=== PATIENT | male | born 1955 | race Hispanic/Latino ===

== ENCOUNTER 2017-04-07 20:04 | Emergency (ER) | payer MEDICAID ==
[2017-04-07 20:04] VITALS: BMI 36.2
[2017-04-07 20:23] VITALS: BP 139/86; PULSE 108; RESP 18; TEMP 99.4; O2SAT 99
[2017-04-07 21:07] LABS: BASO % 0.3 % (0.0-2.0); EOS # 0.4 K/uL (0.0-0.7); EOS % 3.4 % (0.0-4.0); HEMOGLOBIN 13.3 g/dL (12.0-18.0); LYMPH # 2.5 K/uL (1.0-4.3); LYMPH % 20.7 % (20.0-40.0); MEAN CELL VOLUME 89.7 fl (80.0-94.0); MEAN CORPUSCULAR HGB CONC 33.5 g/dL (33.0-37.0); MEAN PLATELET VOLUME 7.6 fl (7.2-11.7); MONO # 0.8 K/uL (0.0-0.8); MONO % 6.7 % (0.0-10.0); NEUT # 8.2 K/uL (1.8-7.0); NEUT % 68.9 % (50.0-75.0); NRBC % 0.2 % (0.0-0.0); RBC 4.43 Mil/uL (4.40-5.90); RED CELL DISTRIBUTION WIDTH 14.3 % (11.5-14.5); WHITE BLOOD COUNT 11.9 K/uL (4.8-10.8)
[2017-04-07 21:14] LABS: BLOOD UREA NITROGEN 12 mg/dl (9-20); CALCIUM 9.4 mg/dL (8.4-10.2); GFR AFRICAN-AMERICAN > 60; GFR NON-AFRICAN AMERICAN > 60
--- NOTE | 2017-04-07 21:31 | ED PDOC ---
HPI: Male Pain Time Seen by Provider: 04/07/17 20:28 Chief Complaint (Nursing): Male Genitourinary Chief Complaint (Provider): Burning Urination/Diarrhea/Rash History Per: Patient History/Exam Limitations: no limitations Onset/Duration Of Symptoms: Other (months ) Current Symptoms Are (Timing): Still Present Quality Of Discomfort: Burning, "Pain" Associated Symptoms: Diarrhea. denies: Fever, Chest Pain Additional Complaint(s): Camron Uriostegui is a 61 y/o male presenting to the ER on 04/07/2017 with a chief complaint of a burning sensation while urinating that has been persistent for months. Patient states his urinary discomfort is not associated with fever, abdominal pain, or back pain. Patient also presents with diarrhea that has been ongoing for a couple of weeks, which has been describes as somewhat watery with a little mucus. Further, the patient also complains of a rash from what he believes may be due to possible exposure to Poison Claudette after he was in contact with several plants. Contrary to the stated complaint from triage, patient denies any rectal bleeding or hematochezia. Patient stated upon arrival he was having normal bowel movements, but noted a small streak of blood while he was wiping. Of note, patient has had a ureteral stent placed by Dr. Le last year. Patient has had the stent placed since the procedure but has been unable to get it taken out. Past Medical History Reviewed: Historical Data, Nursing Documentation, Vital Signs Vital Signs: Last Vital Signs Temp 99.4 F 04/07/17 20:21 Pulse 108 H 04/07/17 20:21 Resp 18 04/07/17 20:21 BP 139/86 04/07/17 20:21 Pulse Ox 99 04/07/17 20:21 - Medical History PMH: HTN, Kidney Stones, Peripheral Edema, Chronic Kidney Disease - Surgical History Surgical History: No Surg Hx - Family History Family History: States: Unknown Family Hx - Social History Current smoker - smoking cessation education provided: No Alcohol: None Drugs: Denies - Home Medications Home Medications: Ambulatory Orders Medication Instructions Recorded Blood Pressure Med. 1 tab PO DAILY 02/29/16 Muscle Relaxant 1 tab PO BID 02/29/16 Water Pill 1 tab PO DAILY 02/29/16 Ciprofloxacin HCl [Cipro] 500 mg PO BID #20 tablet 04/07/17 Hydrocortisone 1% Cream [Cortizone 1 appl TP DAILY #1 tube 04/07/17 1% Cream] - Allergies Allergies/Adverse Reactions: Allergies Allergy/AdvReac Type Severity Reaction Status Date / Time No Known Allergies Allergy Verified 02/29/16 06:59 Review of Systems ROS Statement: Except As Marked, All Systems Reviewed And Found Negative Constitutional: Negative for: Fever Cardiovascular: Negative for: Chest Pain Gastrointestinal: Positive for: Diarrhea. Negative for: Abdominal Pain Genitourinary Male: Positive for: Dysuria Musculoskeletal: Negative for: Back Pain Skin: Positive for: Rash Neurological: Negative for: Headache Physical Exam - Reviewed Nursing Documentation Reviewed: Yes Vital Signs Reviewed: Yes - Physical Exam Appears: Positive for: Non-toxic, No Acute Distress Head Exam: Positive for: ATRAUMATIC, NORMOCEPHALIC Skin: Positive for: Rash ((+) urticarial rash on both arms that is erythematous , not raised , and non-blanching) Eye Exam: Positive for: Normal appearance, EOMI, PERRL ENT: Positive for: Normal ENT Inspection Neck: Positive for: Normal, Painless ROM, Supple Cardiovascular/Chest: Positive for: Regular Rate, Rhythm. Negative for: Murmur Respiratory: Positive for: Normal Breath Sounds. Negative for: Respiratory Distress Gastrointestinal/Abdominal: Positive for: Normal Exam, Soft. Negative for: Tenderness Extremity: Positive for: Normal ROM. Negative for: Deformity, Swelling Neurologic/Psych: Positive for: Alert, Oriented. Negative for: Motor/Sensory Deficits - Laboratory Results Result Diagrams: 04/07/17 20:30 04/07/17 20:30 - ECG O2 Sat by Pulse Oximetry: 99 Medical Decision Making Medical Decision Makin:28 Initial Impression- Dysuria (differential diagnosis includes UTI and urethritis) ; Diarrhea (differential diagnosis includes resolving enteritis); Rash ( differential diagnosis includes contact dermatitis from poison claudette) Initial Plan- * Urine Dip * Benadryl 25 mg PO * Urine Cx * KUB Abdomen * * KUB left ureteral stent. no acute findings * Documented by Ann Olivarez, acting as a scribe for Parvez Caldwell MD. All medical record entries made by the Scribe were at my direction and personally dictated by me. I have reviewed the chart and agree that the record accurately reflects my personal performance of the history, physical exam, medical decision making, and the department course for this patient. I have also personally directed, reviewed, and agree with the discharge instructions and disposition. Disposition - Clinical Impression Clinical Impression: Urinary tract infection, Poison claudette dermatitis - Patient ED Disposition Is Patient to be Admitted: No Doctor Will See Patient In The: Office Counseled Patient/Family Regarding: Studies Performed, Diagnosis, Need For Followup - Disposition Referrals: Dennis Le Jr., MD [Staff Provider] - Disposition: Routine/Home Disposition Time: 22:24 Condition: GOOD Additional Instructions: Return for worsening. Follow up with your PCP in 2-3 days. Take your medications as instructed. Prescriptions: Ciprofloxacin HCl [Cipro] 500 mg PO BID #20 tablet Hydrocortisone 1% Cream [Cortizone 1% Cream] 1 appl TP DAILY #1 tube Instructions: Urinary Tract Infection in Men (ED), Poison Claudette (ED)
--- NOTE | 2017-04-08 07:55 | RAD ---
HISTORY: dysuria hx of ureteral stent COMPARISON: No prior. FINDINGS: BOWEL: Normal. No obstruction. No free air. 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 OTHER FINDINGS: Position of left double J stent catheter(s): Satisfactory. Proximal left ureteral calculus 12 x 22 mm. IMPRESSION: Double-J stent catheter on the left in satisfactory position. Adjacent proximal right ureteral calculus 12 x 22 mm. No preliminary report provided by emergency department personnel.
== END 2017-04-07 22:53 | disposition home or self-care (01) ==
LOC: H.ER 20:04
DX: L23.7 Allergic contact dermatitis due to plants, except food (principal); N39.0 Urinary tract infection, site not specified; I12.9 Hypertensive chronic kidney disease with stage 1 through stage 4 chronic kidney disease, or unspecified chronic kidney disease

== ENCOUNTER 2018-04-27 16:00 | Emergency (ER) | payer MEDICAID ==
[2018-04-27 16:00] VITALS: BMI 36.2
[2018-04-27] MEDS ORDERED: Naproxen 500 MG TAB PO ONE (17:14)
[2018-04-27] MEDS: Naproxen 500 MG TAB PO STA (17:19)
--- NOTE | 2018-04-27 17:31 | ED PDOC ---
Lower Extremity Pain/Injury Time Seen by Provider: 04/27/18 16:50 Chief Complaint (Nursing): Lower Extremity Problem/Injury Chief Complaint (Provider): Right Ankle Pain / Swelling History Per: Patient History/Exam Limitations: other (patient is a poor historian) Onset/Duration Of Symptoms: Days (x1 month) Current Symptoms Are (Timing): Still Present Additional Complaint(s): 62 year old male presents to the ED for evaluation of right ankle pain and swelling for one month. At baseline, patient uses a walker due to a previous hip surgery as a child and frequent problems with both legs. He reports that last month he was walking more than normal and noticed swelling and pain to bilateral legs, but after taking it easy, the left leg symptoms resolved. The pain and swelling persisted in his right ankle, however, and now has pain on ambulating with walker. Patient thinks it may be a fungal infection to his foot since he notes having a history of them. Otherwise, he denies swelling and pain to the right calf, chest pain, shortness of breath, fever, rash, and trauma / falls / accident at the time of onset. He reports he has not been evaluated since the start of symptoms, but was worked up many years ago for leg swelling, however does not remember his diagnosis. Of note, patient is a poor historian. PMD: Rajiv Mccain Past Medical History Reviewed: Historical Data, Nursing Documentation, Vital Signs Vital Signs: Last Vital Signs Temp 98.2 F 04/27/18 16:10 Pulse 87 04/27/18 16:10 Resp 16 04/27/18 16:10 BP 178/86 H 04/27/18 16:10 Pulse Ox 97 04/27/18 16:10 - Medical History PMH: HTN, Kidney Stones, Peripheral Edema, Chronic Kidney Disease - Surgical History Other surgeries: colon surgery; right hip surgery - Family History Family History: States: Unknown Family Hx - Social History Current smoker - smoking cessation education provided: No Alcohol: Social - Home Medications Home Medications: Ambulatory Orders Medication Instructions Recorded Blood Pressure Med. 1 tab PO DAILY 02/29/16 Muscle Relaxant 1 tab PO BID 02/29/16 Water Pill 1 tab PO DAILY 02/29/16 Ciprofloxacin HCl [Cipro] 500 mg PO BID #20 tablet 04/07/17 Hydrocortisone 1% Cream [Cortizone 1 appl TP DAILY #1 tube 04/07/17 1% Cream] Acetaminophen [Tylenol Extra 500 mg PO Q6 PRN #100 tablet 04/27/18 Strength] - Allergies Allergies/Adverse Reactions: Allergies Allergy/AdvReac Type Severity Reaction Status Date / Time No Known Allergies Allergy Verified 02/29/16 06:59 Wells Criteria for PE - Wells Criteria for Pulmonary Embolism Clinical Signs and Symptoms of DVT: No P.E is #1 Diagnosis, or Equally Likely: No Heart Rate >100: No Immobilization at least 3 days;Surgery previous 4 weeks: No Previous, objectively diagnosed PE or DVT: No Hemoptysis: No Malignancy w/treatment within 6 months, or palliative: No Total Score: 0 Review of Systems ROS Statement: Except As Marked, All Systems Reviewed And Found Negative Constitutional: Negative for: Fever Cardiovascular: Negative for: Chest Pain Respiratory: Negative for: Shortness of Breath Musculoskeletal: Positive for: Foot Pain (right ankle pain and swelling). Negative for: Other (swelling or pain to right calf) Skin: Negative for: Rash Physical Exam - Reviewed Nursing Documentation Reviewed: Yes Vital Signs Reviewed: Yes - Physical Exam Appears: Positive for: Well, Non-toxic, No Acute Distress Head Exam: Positive for: ATRAUMATIC Skin: Positive for: Normal Color, Warm. Negative for: Rash, Cyanosis Cardiovascular/Chest: Positive for: Regular Rate, Rhythm, Chest Non Tender. Negative for: JVD, Murmur Respiratory: Positive for: Normal Breath Sounds. Negative for: Accessory Muscle Use, Crackles, Rales, Rhonchi, Wheezing Pulses-Dorsalis Pedis (L): 2+ Pulses-Dorsalis Pedis (R): 2+ Pulses-Post. Tibialis (L): 2+ Pulses-Post. Tibialis (R): 2+ Gastrointestinal/Abdominal: Positive for: Normal Exam Extremity: Positive for: Normal ROM, Swelling, Other (FROM and strenght equal in both ankles. Right ankle mildly swollen with overgrown toenails but no signs on infection/cellulitis. No pitting. NO point tenderness to ankle.). Negative for: Calf Tenderness - Laboratory Results Result Diagrams: 04/27/18 17:40 04/27/18 17:40 - ECG O2 Sat by Pulse Oximetry: 97 (RA) Pulse Ox Interpretation: Normal Medical Decision Making Medical Decision Making: Time: 1705 Initial Impression: low suspicion for DVT with Well's Criteria for DVT at 0, workup for injury to right ankle Initial Plan: --BNP --BMP --CBC with differential --Naproxen 500 mg PO --Right ankle XR Three view xray of right ankle reveals no fracture or other acute abnormality. Labs including BNP WNL. Pt's elevated BP discussed and he will follow up with his PMD for correction BP management. Pt given referral for podiatry clinic and will follow up in one week. Pt states he is comfortable walking with his walker and is comfortable being discharged home and with the follow up plan. Return precautions discussed with the patient. Rx for Tylenol for pain. Scribe Attestation: Documented by Marlyn Santiago, acting as a scribe for Terra Zamora MD. Provider Scribe Attestation: All medical record entries made by the Scribe were at my direction and personally dictated by me. I have reviewed the chart and agree that the record accurately reflects my personal performance of the history, physical exam, medical decision making, and the department course for this patient. I have also personally directed, reviewed, and agree with the discharge instructions and disposition. Disposition - Clinical Impression Clinical Impression: Ankle pain - Disposition Referrals: Podiatry Clinic [Outside] Disposition: Routine/Home Disposition Time: 18:50 Condition: IMPROVED Additional Instructions: Follow up in podiatry clinic within 5 to 7 days. Prescriptions: Acetaminophen [Tylenol Extra Strength] 500 mg PO Q6 PRN #100 tablet PRN Reason: Pain, Moderate (4-7) Forms: [employer] (Syriac)
[2018-04-27 17:51] LABS: BASO # 0.1 K/uL (0.0-0.2); BASO % 0.8 % (0.0-2.0); EOS # 0.3 K/uL (0.0-0.7); EOS % 2.7 % (0.0-4.0); HEMOGLOBIN 13.7 g/dL (12.0-18.0); LYMPH # 3.4 K/uL (1.0-4.3); LYMPH % 33.5 % (20.0-40.0); MEAN CELL VOLUME 90.4 fl (80.0-94.0); MEAN CORPUSCULAR HEMOGLOBIN 30.7 pg (27.0-31.0); MEAN PLATELET VOLUME 8.3 fl (7.2-11.7); MONO # 0.8 K/uL (0.0-0.8); MONO % 8.2 % (0.0-10.0); NEUT # 5.5 K/uL (1.8-7.0); NEUT % 54.8 % (50.0-75.0); NRBC % 0.4 % (0.0-0.0); RBC 4.46 Mil/uL (4.40-5.90); RED CELL DISTRIBUTION WIDTH 13.9 % (11.5-14.5); WHITE BLOOD COUNT 10.1 K/uL (4.8-10.8)
[2018-04-27 17:57] LABS: BLOOD UREA NITROGEN 16 mg/dl (9-20); CALCIUM 9.3 mg/dL (8.4-10.2); GFR AFRICAN-AMERICAN > 60; GFR NON-AFRICAN AMERICAN > 60
[2018-04-27 18:04] LABS: B-TYPE NATRIURETIC PEPTIDE 453 pg/ml (0-900)
--- NOTE | 2018-04-27 18:06 | RAD ---
Date of service: 04/27/2018 PROCEDURE: Right Ankle Radiographs. HISTORY: right ankle swelling and pain for one month COMPARISON: None FINDINGS: BONES: Normal. No fracture. JOINTS: Normal. No osteoarthritis. Ankle mortise maintained. Talar dome intact SOFT TISSUES: Generalize locally extremity edema/soft tissue swelling. OTHER FINDINGS: None. IMPRESSION: Soft tissue swelling/generalized edema without acute articular or osseous abnormality.
[2018-04-27 19:13] VITALS: BP 141/80; PULSE 81; RESP 18; TEMP 98.4; O2SAT 99
== END 2018-04-27 19:16 | disposition home or self-care (01) ==
LOC: H.ER 16:00
DX: M25.571 Pain in right ankle and joints of right foot (principal); I12.9 Hypertensive chronic kidney disease with stage 1 through stage 4 chronic kidney disease, or unspecified chronic kidney disease

== ENCOUNTER 2018-06-21 14:36 | Emergency (ER) | payer MEDICAID ==
[2018-06-21 14:36] VITALS: BMI 36.2
[2018-06-21 15:20] VITALS: TEMP 97.9; O2SAT 99
--- NOTE | 2018-06-21 16:27 | ED PDOC ---
Lower Extremity Pain/Injury Chief Complaint (Provider): Wound, right lower leg History Per: Patient History/Exam Limitations: no limitations Onset/Duration Of Symptoms: Days Current Symptoms Are (Timing): Still Present Additional Complaint(s): 62 yo male presents with burning on urination x 1 week. Pt denies N/V/ abdominal pain, back pain. Pt als reports wound of the right posterior leg x 1 month. Pt denies calf pain. Pt states he was on antibiotics for wound but unable to follow-up. <Ericka Humphrey - Last Filed: 06/21/18 16:24> <Terra Zamora - Last Filed: 06/26/18 13:49> Time Seen by Provider: 06/21/18 15:27 Chief Complaint (Nursing): Lower Extremity Problem/Injury Past Medical History Reviewed: Historical Data, Nursing Documentation, Vital Signs Vital Signs: Last Vital Signs Temp 97.9 F 06/21/18 15:19 Pulse 90 06/21/18 15:19 Resp 20 06/21/18 15:19 BP 137/75 06/21/18 15:19 Pulse Ox 99 06/21/18 15:19 - Medical History PMH: HTN, Kidney Stones, Peripheral Edema, Chronic Kidney Disease - Surgical History Surgical History: No Surg Hx - Family History Family History: States: Unknown Family Hx - Living Arrangements Living Arrangements: With Family - Social History Current smoker - smoking cessation education provided: No <Ericka Humphrey - Last Filed: 06/21/18 16:24> Vital Signs: Last Vital Signs Temp 97.9 F 06/21/18 17:07 Pulse 86 06/21/18 17:07 Resp 18 06/21/18 17:07 BP 135/70 06/21/18 17:07 Pulse Ox 99 06/21/18 17:07 <Terra Zamora - Last Filed: 06/26/18 13:49> - Home Medications Home Medications: Ambulatory Orders Medication Instructions Recorded Blood Pressure Med. 1 tab PO DAILY 02/29/16 Muscle Relaxant 1 tab PO BID 02/29/16 Water Pill 1 tab PO DAILY 02/29/16 Ciprofloxacin HCl [Cipro] 500 mg PO BID #20 tablet 04/07/17 RX: Hydrocortisone 1% Cream 1 appl TP DAILY #1 tube 04/07/17 [Cortizone 1% Cream] Acetaminophen [Tylenol Extra 500 mg PO Q6 PRN #100 tablet 04/27/18 Strength] Sulfamethoxazole/Trimethoprim 1 each PO BID #20 tablet 06/21/18 [Bactrim 400-80 mg Tablet] - Allergies Allergies/Adverse Reactions: Allergies Allergy/AdvReac Type Severity Reaction Status Date / Time No Known Allergies Allergy Verified 06/21/18 15:21 Review of Systems ROS Statement: Except As Marked, All Systems Reviewed And Found Negative Constitutional: Negative for: Fever, Chills ENT: Negative for: Ear Pain Cardiovascular: Negative for: Chest Pain, Palpitations Respiratory: Negative for: Cough, Shortness of Breath Gastrointestinal: Negative for: Nausea, Vomiting, Abdominal Pain Genitourinary Male: Positive for: Dysuria Skin: Positive for: Other (Wound, posterior right lower leg ). Negative for: Rash Neurological: Negative for: Weakness, Numbness, Seizures, Altered Mental Status, Headache <Ericka Humphrey - Last Filed: 06/21/18 16:24> Physical Exam - Reviewed Nursing Documentation Reviewed: Yes Vital Signs Reviewed: Yes - Physical Exam Appears: Positive for: Well, Non-toxic, No Acute Distress Head Exam: Positive for: ATRAUMATIC, NORMAL INSPECTION, NORMOCEPHALIC Skin: Positive for: Normal Color, Warm, DRY Eye Exam: Positive for: Normal appearance ENT: Positive for: Normal ENT Inspection Neck: Positive for: Normal, Painless ROM Cardiovascular/Chest: Positive for: Regular Rate, Rhythm Respiratory: Positive for: Normal Breath Sounds. Negative for: Accessory Muscle Use, Respiratory Distress Back: Positive for: Normal Inspection. Negative for: L CVA Tenderness, R CVA Tenderness Extremity: Positive for: Normal ROM, Other ((-) homens sign). Negative for: Calf Tenderness, Deformity Neurologic/Psych: Positive for: Alert, Oriented <Ericka Humphrey - Last Filed: 06/21/18 16:24> - ECG O2 Sat by Pulse Oximetry: 99 <Ericka Humphrey - Last Filed: 06/21/18 16:24> Medical Decision Making Medical Decision Making: Urine (+) leuks Urine culture and GC/chlamydia Discussed f/u with wound clinic <Ericka Humphrey - Last Filed: 06/21/18 16:24> Disposition - Patient ED Disposition Is Patient to be Admitted: No Counseled Patient/Family Regarding: Diagnosis, Need For Followup - Disposition Disposition: Routine/Home Disposition Time: 16:29 <Ericka Humphrey - Last Filed: 06/21/18 16:24> <Terra Zamora - Last Filed: 06/26/18 13:49> - Clinical Impression Clinical Impression: Urinary tract infection, Wound of skin - Disposition Referrals: [facility] [Outside] Podiatry Clinic [Outside] [facility] [Outside] Condition: STABLE Prescriptions: Sulfamethoxazole/Trimethoprim [Bactrim 400-80 mg Tablet] 1 each PO BID #20 tablet Instructions: Urinary Tract Infection, Adult (DC) Forms: [employer] (Uzbek) Addendum Addendum: 06/26/18 13:49 reviewed chart and agree with PA assessment and plan. <Terra Zamora - Last Filed: 06/26/18 13:49>
[2018-06-21 17:08] VITALS: BP 135/70; PULSE 86; RESP 18
== END 2018-06-21 17:09 | disposition home or self-care (01) ==
LOC: H.ER 14:36
DX: N39.0 Urinary tract infection, site not specified (principal); L97.909 Non-pressure chronic ulcer of unspecified part of unspecified lower leg with unspecified severity; I12.9 Hypertensive chronic kidney disease with stage 1 through stage 4 chronic kidney disease, or unspecified chronic kidney disease

== ENCOUNTER 2018-07-14 16:33 | Inpatient (IN) | payer MEDICAID ==
--- NOTE | 2018-07-14 18:31 | ED PDOC ---
Lower Extremity Pain/Injury Time Seen by Provider: 07/14/18 18:27 Chief Complaint (Nursing): Lower Extremity Problem/Injury Chief Complaint (Provider): blisters to right ankle History Per: Patient Additional Complaint(s): 62 y/o non-domiciled male presents with painful blister to right ankle. Patient has had infections to right ankle on and off for several years. He noticed purulent discharge from same area a few days ago. He denies any fever or chills. Patient was seen on 06/21/18 in ED for UTI symptoms and was prescribed bactrim but he admits to being non-compliant with these meds. PMD: none Past Medical History Reviewed: Historical Data, Nursing Documentation, Vital Signs Vital Signs: Last Vital Signs Temp 98.6 F 07/14/18 16:45 Pulse 87 07/14/18 16:45 Resp 16 07/14/18 16:45 BP 146/83 07/14/18 16:45 Pulse Ox 96 07/14/18 16:45 - Medical History PMH: HTN, Kidney Stones, Peripheral Edema, Chronic Kidney Disease - Family History Family History: States: No Known Family Hx - Living Arrangements Living Arrangements: Other (lives in long-term) - Social History Current smoker - smoking cessation education provided: Yes Alcohol: None Drugs: Denies - Home Medications Home Medications: Ambulatory Orders Medication Instructions Recorded Blood Pressure Med. 1 tab PO DAILY 02/29/16 Muscle Relaxant 1 tab PO BID 02/29/16 Water Pill 1 tab PO DAILY 02/29/16 Ciprofloxacin HCl [Cipro] 500 mg PO BID #20 tablet 04/07/17 Hydrocortisone 1% Cream [Cortizone 1 appl TP DAILY #1 tube 04/07/17 1% Cream] Acetaminophen [Tylenol Extra 500 mg PO Q6 PRN #100 tablet 04/27/18 Strength] Sulfamethoxazole/Trimethoprim 1 each PO BID #20 tablet 06/21/18 [Bactrim 400-80 mg Tablet] - Allergies Allergies/Adverse Reactions: Allergies Allergy/AdvReac Type Severity Reaction Status Date / Time No Known Allergies Allergy Verified 07/14/18 16:47 Wells Criteria for PE - Wells Criteria for Pulmonary Embolism Clinical Signs and Symptoms of DVT: No P.E is #1 Diagnosis, or Equally Likely: No Heart Rate >100: No Immobilization at least 3 days;Surgery previous 4 weeks: No Previous, objectively diagnosed PE or DVT: No Hemoptysis: No Malignancy w/treatment within 6 months, or palliative: No Total Score: 0 Review of Systems ROS Statement: Except As Marked, All Systems Reviewed And Found Negative Constitutional: Negative for: Fever Musculoskeletal: Positive for: Other (blisters to right ankle) Physical Exam - Reviewed Nursing Documentation Reviewed: Yes Vital Signs Reviewed: Yes - Physical Exam Appears: Positive for: Non-toxic, No Acute Distress. Negative for: Well (unkempt) Skin: Positive for: Normal Color. Negative for: Rash Eye Exam: Positive for: Normal appearance Extremity: Positive for: Pedal Edema (3 + bilaterally), Other (swelling and erythema to right posterior ankle with thick, foul smelling purulent discharge, normal distal sensation) Neurologic/Psych: Positive for: Alert, Oriented - ECG O2 Sat by Pulse Oximetry: 96 Pulse Ox Interpretation: Normal Medical Decision Making Medical Decision Makin62 y/o male with right ankle pain Plan: Blood cultures CBC CMP Wound culture IV vanco and zosyn IVF Podiatry consult Disposition - Clinical Impression Clinical Impression: Open wound of ankle - Patient ED Disposition Is Patient to be Admitted: Transfer of Care - Disposition Disposition: Transfer of Care Disposition Time: 20:00 Condition: FAIR Forms: [employer] (Kosovan) Patient Signed Over To: Mariana Perkins Handoff Comments: Signed out to FRANCIS Perkins pending diagnostic testing results, podiatry eval and final disposition
[2018-07-14] MEDS ORDERED: Sodium Chloride 0.9% 1,000 ML IV STA (18:34)
[2018-07-14] MEDS ORDERED: Piperacillin/Tazobact 3.375 gm Inj IVPB STA (18:34)
[2018-07-14] MEDS ORDERED: Povidone Iodine Topical 10% Sol ONE (20:02)
--- NOTE | 2018-07-14 21:00 | ED PDOC ---
- Laboratory Results Result Diagrams: 07/14/18 20:55 07/14/18 20:55 - ECG ECG: Positive for: Viewed By Me (reviewed by ED attending) ECG Rhythm: Positive for: Sinus Rhythm O2 Sat by Pulse Oximetry: 96 - Radiology X-Ray: Viewed By Me X-Ray Interpretation: Cardiomegaly - Progress ED Course And Treament: Case endorsed to typewriter repairer from Yvan MELLO pending labs, podiatry eval Patient evaluated by podiatry resident Dr. Ramon; wound dressed. Recommends PO abx and f/up at wound care center [facility] u/s USArad impression: The right popliteal vein in non-compressivle with no color flow is seen throughout consistent with deep vein thrombosis Lovenox dose ordered Case discussed with Dr. Dennis for admission Disposition - Clinical Impression Clinical Impression: Open wound of ankle, Cellulitis, DVT (deep venous thrombosis) - POA Present On Arrival: Deep Vein Thrombosis / PE - Disposition Disposition: Admitted as In-Patient Disposition Time: 23:28 Condition: FAIR
[2018-07-14 21:05] LABS: BASO # 0.1 K/uL (0.0-0.2); EOS # 0.3 K/uL (0.0-0.7); EOS % 2.4 % (0.0-4.0); HEMOGLOBIN 11.8 g/dL (12.0-18.0); LYMPH # 3.4 K/uL (1.0-4.3); LYMPH % 33.2 % (20.0-40.0); MEAN CELL VOLUME 89.4 fl (80.0-94.0); MEAN CORPUSCULAR HEMOGLOBIN 29.9 pg (27.0-31.0); MEAN CORPUSCULAR HGB CONC 33.5 g/dL (33.0-37.0); MEAN PLATELET VOLUME 7.2 fl (7.2-11.7); MONO # 0.7 K/uL (0.0-0.8); MONO % 7.2 % (0.0-10.0); NEUT # 5.8 K/uL (1.8-7.0); NEUT % 56.2 % (50.0-75.0); NRBC % 0.1 % (0.0-0.0); RBC 3.95 Mil/uL (4.40-5.90); RED CELL DISTRIBUTION WIDTH 12.8 % (11.5-14.5); WHITE BLOOD COUNT 10.4 K/uL (4.8-10.8)
[2018-07-14 21:15] LABS: ALBUMIN 3.4 g/dL (3.5-5.0); ALT/SGPT 46 U/L (21-72); AST/SGOT 55 U/L (17-59); BLOOD UREA NITROGEN 11 mg/dl (9-20); CALCIUM 8.8 mg/dL (8.4-10.2); GFR NON-AFRICAN AMERICAN > 60
[2018-07-14] MEDS ORDERED: Piperacillin/Tazobact 3.375 gm Inj IVPB ONE (21:16)
[2018-07-14] MEDS ORDERED: Vancomycin 1 g Inj ONE (21:17)
--- NOTE | 2018-07-14 21:52 | CP.PCM.CON ---
History of Present Illness - History of Present Illness History of Present Illness: Podiatry Consult Note for Dr. cMhugh: 62 yo male patient presents with painful calf and superficial ulceration to right leg. 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 He notes that he occasionally gets R leg ulcers that drain clear fluid. However this time, his leg is a lot more red, swollen, and painful than normal. Patient states that he was treated in the ED a couple of weeks ago for a UTI. Unable to obtain full history, patient is a poor historian. Denies any other pedal complaints. Patient denies N/V/F/SOB. Past Patient History - Past Medical History & Family History Past Medical History?: Yes - Past Social History Alcohol: None Drugs: Denies - CARDIAC Hx Hypertension: Yes Hx Peripheral Edema: Yes - PULMONARY Hx Respiratory Disorders: No - NEUROLOGICAL Hx Neurological Disorder: Yes Other/Comment: HX:UNSTEADY GAIT:"IN 2009 BEATEN WITH A PIPE HAD TO USE A WALKER FOR AWHILE BUT NOW I'M BETTER." - HEENT Hx HEENT Problems: Yes Hx Cataracts: Yes ("SMALL AT THIS TIME") - RENAL Hx Chronic Kidney Disease: Yes Hx Kidney Stones: Yes - ENDOCRINE/METABOLIC Hx Endocrine Disorders: No - HEMATOLOGICAL/ONCOLOGICAL Hx Blood Disorders: Yes Hx Blood Transfusions: Yes Hx Blood Transfusion Reaction: No - INTEGUMENTARY Hx Dermatological Problems: No - MUSCULOSKELETAL/RHEUMATOLOGICAL Hx Musculoskeletal Disorders: Yes Hx Unsteady Gait: Yes Other/Comment: " AN I HAD SURGERY ON MY RIGHT HIP AND HAVE AN UNEVEN GAIT. I GET PAIN IN MY RIGHT HIP SO I TAKE A MUSCLE RELAXANT." - GASTROINTESTINAL Hx Gastrointestinal Disorders: Yes Hx Colostomy: Yes (AND REVERSAL DONE.) Hx Gastroesophageal Reflux: Yes Other/Comment: HX: 1987-"INFECTION IN MY COLON -I HAD SURGERY AND A COLOSTOMY FOR SEVERAL MONTHS BUT NO LONGER HAVE A COLOSTOMY.". HX: 2006-"COLON SURGERY DUE TO CONSTIPATION." - GENITOURINARY/GYNECOLOGICAL Hx Genitourinary Disorders: No - PSYCHIATRIC Hx Psychophysiologic Disorder: No Hx Substance Use: Yes - SURGICAL HISTORY Hx Surgeries: Yes Other/Comment: " AN INFANT I HAD SURGERY ON MY RIGHT HIP." - ANESTHESIA Hx Anesthesia: Yes Hx Anesthesia Reactions: No Hx Malignant Hyperthermia: No Meds Allergies/Adverse Reactions: Allergies Allergy/AdvReac Type Severity Reaction Status Date / Time No Known Allergies Allergy Verified 07/14/18 16:47 Physical Exam - Constitutional Appears: Non-toxic, No Acute Distress - Head Exam Head Exam: ATRAUMATIC, NORMOCEPHALIC - Extremities Exam Additional comments: RLE focused exam Vascular: DP/PT 1/4, CFT <3 seconds to digits, temperature gradient increased warmth to R calf, +2 pitting edema to RLE Ortho: Pain upon palpation of calf compression Neuro: Gross sensation intact, unable to assess protective sensation Derm: Superficial diffuse ulceration to posterior calf, + for mild weeping of sanginous drainage, no purulence, no tunneling, no tracking, no probe to bone. Erythema noted to proximal calf area. Results - Vital Signs Recent Vital Signs: Last Vital Signs Temp 98.6 F 07/14/18 16:45 Pulse 87 07/14/18 16:45 Resp 16 07/14/18 16:45 BP 146/83 07/14/18 16:45 Pulse Ox 96 07/14/18 21:00 - Labs Result Diagrams: 07/14/18 20:55 07/14/18 20:55 Labs: Laboratory Results - last 24 hr 07/14/18 07/14/18 20:55 20:55 WBC 10.4 RBC 3.95 L Hgb 11.8 L Hct 35.3 MCV 89.4 MCH 29.9 MCHC 33.5 RDW 12.8 Plt Count 342 MPV 7.2 Neut % (Auto) 56.2 Lymph % (Auto) 33.2 [place] % (Auto) 7.2 Eos % (Auto) 2.4 Baso % (Auto) 1.0 Neut # (Auto) 5.8 Lymph # (Auto) 3.4 [place] # (Auto) 0.7 Eos # (Auto) 0.3 Baso # (Auto) 0.1 Sodium 139 Potassium 3.3 L Chloride 107 Carbon Dioxide 25 Anion Gap 10 BUN 11 Creatinine 0.8 Est GFR ( Amer) > 60 Est GFR (Non-Af Amer) > 60 Random Glucose 102 Calcium 8.8 Total Bilirubin 0.4 AST 55 ALT 46 Alkaline Phosphatase 105 Total Protein 6.7 Albumin 3.4 L Globulin 3.3 Albumin/Globulin Ratio 1.0 Assessment & Plan - Assessment and Plan (Free Text) Assessment: 62 yo male patient presents with painful calf and superficial ulceration to right leg. Plan: Patient seen and evaluated with all questions and concerns addressed Afebrile, WBC 10.4 Wound cx RLE ulceration; pending Wound stable from podiatry standpoint Continue with abx R Duplex lower extremity vein; + for popliteal DVT - DVT treatment per medicine team, Lovonox dose ordered by ED team Local wound care: wound dressed with betadine wet to dry, DSD Pending D/C follow up in wound care center with Dr. Koehler, podiatry Will continue to follow while in house - Date & Time Date: 07/14/18 Time: 21:52
[2018-07-14 22:11] LABS: SQUAMOUS EPITHIAL 1 /hpf (0-5); URINE AMORPHOUS SEDIMENT RARE /ul (<OCC); URINE BILIRUBIN NEGATIVE (NEGATIVE); URINE BLOOD LARGE (NEGATIVE); URINE CLARITY CLOUDY (Clear); URINE COLOR YELLOW (YELLOW); URINE GLUCOSE (UA) NEG (Normal); URINE LEUKOCYTE ESTERASE MOD Leu/uL (Negative); URINE PROTEIN 30 mg/dL (NEGATIVE)
[2018-07-14] MEDS ORDERED: Enoxaparin 120 mg Syringe SC SCH (23:00)
[2018-07-15 00:10] LABS: INR 1.1; PROTHROMBIN TIME 12.3 Seconds (9.8-13.1)
[2018-07-15 00:11] LABS: PARTIAL THROMBOPLASTIN TIME 30.2 Seconds (25.6-37.1)
[2018-07-15] MEDS ORDERED: Potassium Chloride 20 mEq ER Tab PO ONE ×2 (00:39→00:48)
[2018-07-15] MEDS ORDERED: Piperacillin/Tazobact 3.375 gm Inj IVPB ONE ×2 (05:59→10:55)
[2018-07-15] MEDS: Piperacillin/Tazobact 3.375 GM in Sodium Chloride 0.9% 100 ML IVPB SCH ×2 (06:15→10:59)
--- NOTE | 2018-07-15 07:10 | CARD ---
APPROVED REPORT Date of service: 07/15/2018 EKG Measurement Heart [id number] <Conclusion> Sinus rhythm with occasional premature atrial complexes Otherwise normal ECG
[2018-07-15] MEDS ORDERED: Vancomycin 1 g Inj ONE (08:38)
--- NOTE | 2018-07-15 08:43 | RAD ---
Date of service: 07/14/2018 HISTORY: admit COMPARISON: No prior. FINDINGS: LUNGS: No active pulmonary disease. PLEURA: No significant pleural effusion identified, no pneumothorax apparent. CARDIOVASCULAR: No aortic atherosclerotic calcification present. Prominent appearing cardiac silhouette possibly on the basis of technical magnification. No pulmonary vascular congestion. OSSEOUS STRUCTURES: No significant abnormalities. VISUALIZED UPPER ABDOMEN: Normal. OTHER FINDINGS: None. IMPRESSION: No acute airspace disease bilaterally. No pulmonary vascular congestion.
[2018-07-15] MEDS: Enoxaparin 120 mg Syringe SC SCH ×2 (09:13→22:50)
--- NOTE | 2018-07-15 09:29 | US ---
Date of service: 07/14/2018 PROCEDURE: Right lower extremity venous duplex Doppler. HISTORY: calf swelling and tenderness, rule out DVT COMPARISON: None available. TECHNIQUE: Common femoral, superficial femoral, popliteal and posterior tibial veins were evaluated. Flow was assessed with color Doppler, compressibility, assessment of phasic flow and augmentation response. FINDINGS: COMMON FEMORAL VEIN: Unremarkable. SUPERFICIAL FEMORAL VEIN: Unremarkable. POPLITEAL VEIN: Absence of compressibility and flow consistent with focal segmental deep vein thrombosis. POSTERIOR TIBIAL VEIN: Unremarkable. OTHER FINDINGS: None. IMPRESSION: Positive study for popliteal vein thrombosis without evidence of proximal or distal propagation. Concordant findings (preliminary report) provided by [facility].
--- NOTE | 2018-07-15 10:53 | CP.PCM.CON ---
History of Present Illness - History of Present Illness History of Present Illness: Infectious Disease Consultation Note- asked to see this patient at the request of for RLE cellulitis. HPI- Patient is a 62 year old homeless male wh presents to ED with c/o pain , swelling, rednees on his Right lower extremity nonhealing wound. As per pt. he was in ED 2 weeks ago for the same thing and he was given oral a ntibiotics which he states he took but again 3 days ago his RLE wound started to get red and surrounding swelling and yellow discharge. He denies any fever or chills. denies any nausea or vomiting. denies any injury to the leg . He denies any allergy to any medications. Pt. states his PMD is he denies diabetes. Review of Systems - Review of Systems Review of Systems: ROS- denies any fever or chills, denies any OLEA, denies any cough, denies any sob, denies any chest pain, denies any abd. pain, denies any nausea or vomiting. denies any diarrhea, denies any dysurea. redness and swelling and tenderness in right calf region around nonhealing wound/ulceration Past Patient History - Past Medical History & Family History Past Medical History?: Yes - Past Social History Alcohol: None Drugs: Denies Home Situation {Lives}: Homeless - CARDIAC Hx Hypertension: Yes Hx Peripheral Edema: Yes - PULMONARY Hx Respiratory Disorders: No - NEUROLOGICAL Hx Neurological Disorder: Yes Other/Comment: HX:UNSTEADY GAIT:"IN 2009 BEATEN WITH A PIPE HAD TO USE A WALKER FOR AWHILE BUT NOW I'M BETTER." - HEENT Hx HEENT Problems: Yes Hx Cataracts: Yes ("SMALL AT THIS TIME") - RENAL Hx Chronic Kidney Disease: Yes Hx Kidney Stones: Yes - ENDOCRINE/METABOLIC Hx Endocrine Disorders: No - HEMATOLOGICAL/ONCOLOGICAL Hx Blood Disorders: Yes Hx Blood Transfusions: Yes Hx Blood Transfusion Reaction: No - INTEGUMENTARY Hx Dermatological Problems: No - MUSCULOSKELETAL/RHEUMATOLOGICAL Hx Musculoskeletal Disorders: Yes Hx Unsteady Gait: Yes Other/Comment: " AN INFANT I HAD SURGERY ON MY RIGHT HIP AND HAVE AN UNEVEN GAIT. I GET PAIN IN MY RIGHT HIP SO I TAKE A MUSCLE RELAXANT." - GASTROINTESTINAL Hx Gastrointestinal Disorders: Yes Hx Colostomy: Yes (AND REVERSAL DONE.) Hx Gastroesophageal Reflux: Yes Other/Comment: HX: 1987-"INFECTION IN MY COLON -I HAD SURGERY AND A COLOSTOMY FOR SEVERAL MONTHS BUT NO LONGER HAVE A COLOSTOMY.". HX: 2006-"COLON SURGERY DUE TO CONSTIPATION." - GENITOURINARY/GYNECOLOGICAL Hx Genitourinary Disorders: No - PSYCHIATRIC Hx Psychophysiologic Disorder: No Hx Substance Use: Yes - SURGICAL HISTORY Hx Surgeries: Yes Other/Comment: " AN INFANT I HAD SURGERY ON MY RIGHT HIP." - ANESTHESIA Hx Anesthesia: Yes Hx Anesthesia Reactions: No Hx Malignant Hyperthermia: No Meds Allergies/Adverse Reactions: Allergies Allergy/AdvReac Type Severity Reaction Status Date / Time No Known Allergies Allergy Verified 07/14/18 16:47 - Medications Medications: Current Medications Acetaminophen (Tylenol 325mg Tab) 325 mg PO Q6 PRN PRN Reason: Fever >100.4 F Enalapril Maleate (Vasotec) 10 mg PO DAILY RENEE Last Admin: 07/15/18 09:09 Dose: 10 mg Enoxaparin Sodium (Lovenox) 120 mg SC Q12 RENEE; Protocol Last Admin: 07/15/18 09:13 Dose: 120 mg Vancomycin HCl 1 gm/ Sodium (Chloride) 250 mls @ 166.667 mls/hr IVPB DAILY RENEE; Protocol Last Admin: 07/15/18 09:09 Dose: 166.667 mls/hr Piperacillin Sod/Tazobactam (Sod 3.375 gm/ Sodium Chloride) 100 mls @ 100 mls/hr IVPB Q6 RENEE; Protocol Last Admin: 07/15/18 06:15 Dose: 100 mls/hr Physical Exam - Head Exam Head Exam: ATRAUMATIC - Eye Exam Eye Exam: EOMI Pupil Exam: PERRL - ENT Exam ENT Exam: Normal Oropharynx - Neck Exam Neck exam: Positive for: Full Rom - Respiratory Exam Respiratory Exam: Clear to Auscultation Bilateral, NORMAL BREATHING PATTERN - Cardiovascular Exam Cardiovascular Exam: RRR, +S1, +S2 - GI/Abdominal Exam GI & Abdominal Exam: Normal Bowel Sounds, Soft Additional comments: NT, ND - Extremities Exam Additional comments: right LE posterior mid calf region with superficial open ulceration about 7x 8 cm with yellow discharge, no malodor surrounding region with erythema, edema and tenderness to palpation no plantar ulcers b/l onychomycosis - Neurological Exam Neurological exam: Alert, Oriented x3 Results - Vital Signs Recent Vital Signs: Last Vital Signs Temp 98.3 F 07/15/18 08:47 Pulse 77 07/15/18 08:47 Resp 18 07/15/18 08:47 BP 154/92 H 07/15/18 08:47 Pulse Ox 98 07/15/18 08:47 - Labs Result Diagrams: 07/14/18 20:55 07/14/18 20:55 Labs: Laboratory Results - last 24 hr 07/14/18 07/14/18 07/14/18 20:55 20:55 21:42 WBC 10.4 RBC 3.95 L Hgb 11.8 L Hct 35.3 MCV 89.4 MCH 29.9 MCHC 33.5 RDW 12.8 Plt Count 342 MPV 7.2 Neut % (Auto) 56.2 Lymph % (Auto) 33.2 [place] % (Auto) 7.2 Eos % (Auto) 2.4 Baso % (Auto) 1.0 Neut # (Auto) 5.8 Lymph # (Auto) 3.4 [place] # (Auto) 0.7 Eos # (Auto) 0.3 Baso # (Auto) 0.1 PT INR APTT Sodium 139 Potassium 3.3 L Chloride 107 Carbon Dioxide 25 Anion Gap 10 BUN 11 Creatinine 0.8 Est GFR ( Amer) > 60 Est GFR (Non-Af Amer) > 60 Random Glucose 102 Calcium 8.8 Total Bilirubin 0.4 AST 55 ALT 46 Alkaline Phosphatase 105 Total Protein 6.7 Albumin 3.4 L Globulin 3.3 Albumin/Globulin Ratio 1.0 Urine Color Yellow Urine Clarity Cloudy Urine pH 7.0 Ur Specific [place] 1.012 Urine Protein 30 Urine Glucose (UA) Neg Urine Ketones Negative Urine Blood Large Urine Nitrate Negative Urine Bilirubin Negative Urine Urobilinogen 4.0 Ur Leukocyte Esterase Mod Urine RBC (Auto) 308 H Urine Microscopic WBC 18 H Ur Squamous Epith Cells 1 Amorphous Sediment Rare H 07/14/18 23:50 WBC RBC Hgb Hct MCV MCH MCHC RDW Plt Count MPV Neut % (Auto) Lymph % (Auto) [place] % (Auto) Eos % (Auto) Baso % (Auto) Neut # (Auto) Lymph # (Auto) [place] # (Auto) Eos # (Auto) Baso # (Auto) PT 12.3 INR 1.1 APTT 30.2 Sodium Potassium Chloride Carbon Dioxide Anion Gap BUN Creatinine Est GFR ( Amer) Est GFR (Non-Af Amer) Random Glucose Calcium Total Bilirubin AST ALT Alkaline Phosphatase Total Protein Albumin Globulin Albumin/Globulin Ratio Urine Color Urine Clarity Urine pH Ur Specific [place] Urine Protein Urine Glucose (UA) Urine Ketones Urine Blood Urine Nitrate Urine Bilirubin Urine Urobilinogen Ur Leukocyte Esterase Urine RBC (Auto) Urine Microscopic WBC Ur Squamous Epith Cells Amorphous Sediment Laboratory Results - last 72 hr 07/14/18 07/14/18 07/14/18 20:55 20:55 21:42 WBC 10.4 RBC 3.95 L Hgb 11.8 L Hct 35.3 MCV 89.4 MCH 29.9 MCHC 33.5 RDW 12.8 Plt Count 342 MPV 7.2 Neut % (Auto) 56.2 Lymph % (Auto) 33.2 [place] % (Auto) 7.2 Eos % (Auto) 2.4 Baso % (Auto) 1.0 Neut # (Auto) 5.8 Lymph # (Auto) 3.4 [place] # (Auto) 0.7 Eos # (Auto) 0.3 Baso # (Auto) 0.1 PT INR APTT Sodium 139 Potassium 3.3 L Chloride 107 Carbon Dioxide 25 Anion Gap 10 BUN 11 Creatinine 0.8 Est GFR ( Amer) > 60 Est GFR (Non-Af Amer) > 60 Random Glucose 102 Calcium 8.8 Total Bilirubin 0.4 AST 55 ALT 46 Alkaline Phosphatase 105 Total Protein 6.7 Albumin 3.4 L Globulin 3.3 Albumin/Globulin Ratio 1.0 Urine Color Yellow Urine Clarity Cloudy Urine pH 7.0 Ur Specific [place] 1.012 Urine Protein 30 Urine Glucose (UA) Neg Urine Ketones Negative Urine Blood Large Urine Nitrate Negative Urine Bilirubin Negative Urine Urobilinogen 4.0 Ur Leukocyte Esterase Mod Urine RBC (Auto) 308 H Urine Microscopic WBC 18 H Ur Squamous Epith Cells 1 Amorphous Sediment Rare H 07/14/18 23:50 WBC RBC Hgb Hct MCV MCH MCHC RDW Plt Count MPV Neut % (Auto) Lymph % (Auto) [place] % (Auto) Eos % (Auto) Baso % (Auto) Neut # (Auto) Lymph # (Auto) [place] # (Auto) Eos # (Auto) Baso # (Auto) PT 12.3 INR 1.1 APTT 30.2 Sodium Potassium Chloride Carbon Dioxide Anion Gap BUN Creatinine Est GFR ( Amer) Est GFR (Non-Af Amer) Random Glucose Calcium Total Bilirubin AST ALT Alkaline Phosphatase Total Protein Albumin Globulin Albumin/Globulin Ratio Urine Color Urine Clarity Urine pH Ur Specific [place] Urine Protein Urine Glucose (UA) Urine Ketones Urine Blood Urine Nitrate Urine Bilirubin Urine Urobilinogen Ur Leukocyte Esterase Urine RBC (Auto) Urine Microscopic WBC Ur Squamous Epith Cells Amorphous Sediment Microbiology 07/14/18 20:55 Abscess - Abscess Gram Stain - Final Assessment & Plan (1) Cellulitis Status: Acute (2) DVT (deep venous thrombosis) Status: Acute (3) Open wound of ankle Status: Acute - Assessment and Plan (Free Text) Assessment: A/P- 62 year old male with nonhealing superficial infected ulceration of the RLE with surrounding cellulitis and fund to have RLE popliteal vein thrombois on US report as well. pt. is afebrile normal wbc count wound cx- pending plan- await ID and sens of the wound cx. check blood cx x 2 as well. continue with IV vancomycin 1 gram IV bid. Keep trough between 10-15. can d/c zosyn. RLE thrombosis management as per PMD. local wound care as per podiatry . advise to keep the RLE elevated while in bed. All labs and imaging reviewed. All above d/w patient and he verbalizes full understanding of all above and agrees with above plan of care. Thank you for allowing me to take part in the care of this patient.
--- NOTE | 2018-07-16 07:13 | CP.PCM.PN ---
Subjective - Date & Time of Evaluation Date of Evaluation: 07/16/18 Time of Evaluation: 07:08 - Subjective Subjective: Podiatry Consult Note for Dr. Mchugh: 62 yo male patient presents with painful calf and superficial ulceration to right leg. Patient states that he is in less pain and feel better from when he first was brought to the hospital. He notes that his legs have been draining less. Denies any other pedal complaints. Patient denies N/V/F/SOB. Objective - Vital Signs/Intake and Output Vital Signs (last 24 hours): Temp Pulse Resp BP Pulse Ox 97.8 F 71 20 131/74 97 07/15/18 23:39 07/15/18 23:39 07/15/18 23:39 07/15/18 23:39 07/15/18 23:39 - Medications Medications: Current Medications Acetaminophen (Tylenol 325mg Tab) 325 mg PO Q6 PRN PRN Reason: Fever >100.4 F Acetaminophen (Tylenol 325mg Tab) 650 mg PO Q6 PRN PRN Reason: Pain, moderate (4-7) Last Admin: 07/16/18 06:33 Dose: 650 mg Enalapril Maleate (Vasotec) 10 mg PO DAILY RENEE Last Admin: 07/15/18 09:09 Dose: 10 mg Enoxaparin Sodium (Lovenox) 120 mg SC Q12 RENEE; Protocol Last Admin: 07/15/18 22:50 Dose: 120 mg Vancomycin HCl 1 gm/ Sodium (Chloride) 250 mls @ 166.667 mls/hr IVPB BID RENEE; Protocol Last Admin: 07/15/18 17:26 Dose: 166.667 mls/hr - Labs Labs: 07/14/18 20:55 07/14/18 20:55 PT 12.3 Seconds (9.8-13.1) 07/14/18 23:50 INR 1.1 07/14/18 23:50 APTT 30.2 Seconds (25.6-37.1) 07/14/18 23:50 - Constitutional Appears: Well, Non-toxic, No Acute Distress - Head Exam Head Exam: ATRAUMATIC, NORMOCEPHALIC - Extremities Exam Additional comments: RLE focused exam Vascular: DP/PT 1/4, CFT <3 seconds to digits, temperature gradient increased warmth to R calf, +2 pitting edema to RLE Ortho: Pain upon palpation of calf compression Neuro: Gross sensation intact, unable to assess protective sensation Derm: Superficial diffuse ulceration to posterior calf, no drainage, no purulence, no tunneling, no tracking, no probe to bone. Erythema noted to proximal calf area. - Neurological Exam Neurological Exam: Alert, Awake, Oriented x3 - Psychiatric Exam Psychiatric exam: Normal Affect, Normal Mood Assessment and Plan - Assessment and Plan (Free Text) Assessment: 62 yo male with painful calf and superficial ulceration to right leg. Plan: Patient seen and evaluated with all questions and concerns addressed Afebrile, NNL Wound cx RLE ulceration; pending Continue with abx per ID reccs; Vanco 1 gram IV BID R Duplex lower extremity vein; + for popliteal DVT - DVT treatment per medicine team, Lovonox Local wound care: wound dressed with betadine, adaptic, DSD Pending D/C follow up in wound care center with Dr. Koehler, podiatry Will continue to follow while in house
--- NOTE | 2018-07-16 08:35 | HP ---
HISTORY OF PRESENT ILLNESS: This is a 62-year-old male, who is homeless, presented to emergency room with symptoms of swelling of the right lower extremity as well as pain and redness in his right lower extremity with nonhealing wound. The patient was in the emergency room two weeks ago for the same problem and he was given oral antibiotics which he took, but three days ago his right lower extremity wound started to get more red with surrounding swelling and yellowish discharge. Subsequently, he presented to emergency room for evaluation and admitted for failure of outpatient treatment. He denied any fever or chills. REVIEW OF SYSTEMS: Other review of system is negative. ALLERGY: NO KNOWN ALLERGY. MEDICATIONS: Reviewed and ordered. PAST MEDICAL HISTORY: Hypertension, venous insufficiency with venous stasis. SOCIAL HISTORY: He is an ex-smoker and denied any EtOH or substance abuse. FAMILY HISTORY: Not contributory. PHYSICAL EXAMINATION: GENERAL: The patient is in bed, not in any cardiopulmonary distress at the time of this examination. VITAL SIGNS: Blood pressure 139/72, temperature 97.9, respiratory rate 20, and pulse 84. HEENT: Pupils equal, reactive to light. Normal-appearing mucosa of the conjunctivae, oropharynx, and nasal membrane mucosa. NECK: Supple. No JVD. No carotid bruit. No lymph node. No thyromegaly. CHEST AND LUNGS: Bilateral symmetrical expansion. Good air exchange. No rales, no rhonchi. CARDIOVASCULAR SYSTEM: PMI not localized. S1, S2. No additional sounds. ABDOMEN: Normoactive bowel sounds. No tenderness. No organomegaly. No masses. EXTREMITIES: No cyanosis, no clubbing. Plus edema of the right lower extremity with wound at the medial and posterior aspect of the right lower extremity about 5 inches above the ankle. Venous Doppler was done that showed popliteal vein thrombosis without evidence of proximal or distal propagation. ASSESSMENT: Infected ulcer of the right lower extremity, venous stasis, and acute deep venous thrombosis. PLAN: We will start the patient on Lovenox, IV antibiotics, Podiatry consult, ID consult, and follow recommendations. Resume the patient's home medications. Charo Dennis MD [facility] # [id number]
[2018-07-16] MEDS: Enoxaparin 120 mg Syringe SC SCH ×2 (09:22→21:22)
[2018-07-16 12:25] LABS: HEMOGLOBIN 12.3 g/dL (12.0-18.0); MEAN CELL VOLUME 90.4 fl (80.0-94.0); MEAN CORPUSCULAR HEMOGLOBIN 29.8 pg (27.0-31.0); RBC 4.12 Mil/uL (4.40-5.90); RED CELL DISTRIBUTION WIDTH 13.1 % (11.5-14.5); WHITE BLOOD COUNT 9.5 K/uL (4.8-10.8)
--- NOTE | 2018-07-16 12:55 | CP.PCM.PN ---
Subjective - Date & Time of Evaluation Date of Evaluation: 07/16/18 Time of Evaluation: 12:55 - Subjective Subjective: ID note- Pt. seen and examined today . pt. states he feels better. pain in the RLE is less and less edema. Objective - Vital Signs/Intake and Output Vital Signs (last 24 hours): Temp Pulse Resp BP Pulse Ox 98.5 F 76 19 146/74 94 L 07/16/18 08:26 07/16/18 08:26 07/16/18 08:26 07/16/18 08:26 07/16/18 08:26 - Medications Medications: Current Medications Acetaminophen (Tylenol 325mg Tab) 325 mg PO Q6 PRN PRN Reason: Fever >100.4 F Acetaminophen (Tylenol 325mg Tab) 650 mg PO Q6 PRN PRN Reason: Pain, moderate (4-7) Last Admin: 07/16/18 06:33 Dose: 650 mg Enalapril Maleate (Vasotec) 10 mg PO DAILY RENEE Enoxaparin Sodium (Lovenox) 120 mg SC Q12 RENEE; Protocol Vancomycin HCl 1 gm/ Sodium (Chloride) 250 mls @ 166.667 mls/hr IVPB BID RENEE; Protocol Last Admin: 07/16/18 09:27 Dose: 166.667 mls/hr - Labs Labs: - Additional Findings Additional findings: - Head Exam Head Exam: ATRAUMATIC - Eye Exam Eye Exam: EOMI Pupil Exam: PERRL - ENT Exam ENT Exam: Normal Oropharynx - Neck Exam Neck exam: Positive for: Full Rom - Respiratory Exam Respiratory Exam: Clear to Auscultation Bilateral, NORMAL BREATHING PATTERN - Cardiovascular Exam Cardiovascular Exam: RRR, +S1, +S2 - GI/Abdominal Exam GI & Abdominal Exam: Normal Bowel Sounds, Soft Additional comments: NT, ND - Extremities Exam Additional comments: right LE posterior mid calf region with superficial open ulceration about 7x 8 cm no yellow discharge today, only escoriated skin, pink tissue, no malodor surrounding region much decreased erythema, no plantar ulcers b/l onychomycosis - Neurological Exam Neurological exam: Alert, Oriented x 3 Laboratory Results - last 72 hr 07/14/18 07/14/18 07/14/18 20:55 20:55 21:42 WBC 10.4 RBC 3.95 L Hgb 11.8 L Hct 35.3 MCV 89.4 MCH 29.9 MCHC 33.5 RDW 12.8 Plt Count 342 MPV 7.2 Neut % (Auto) 56.2 Lymph % (Auto) 33.2 Lamar % (Auto) 7.2 Eos % (Auto) 2.4 Baso % (Auto) 1.0 Neut # (Auto) 5.8 Lymph # (Auto) 3.4 Lamar # (Auto) 0.7 Eos # (Auto) 0.3 Baso # (Auto) 0.1 PT INR APTT Sodium 139 Potassium 3.3 L Chloride 107 Carbon Dioxide 25 Anion Gap 10 BUN 11 Creatinine 0.8 Est GFR ( Amer) > 60 Est GFR (Non-Af Amer) > 60 Random Glucose 102 Calcium 8.8 Total Bilirubin 0.4 AST 55 ALT 46 Alkaline Phosphatase 105 Total Protein 6.7 Albumin 3.4 L Globulin 3.3 Albumin/Globulin Ratio 1.0 Urine Color Yellow Urine Clarity Cloudy Urine pH 7.0 Ur Specific [place] 1.012 Urine Protein 30 Urine Glucose (UA) Neg Urine Ketones Negative Urine Blood Large Urine Nitrate Negative Urine Bilirubin Negative Urine Urobilinogen 4.0 Ur Leukocyte Esterase Mod Urine RBC (Auto) 308 H Urine Microscopic WBC 18 H Ur Squamous Epith Cells 1 Amorphous Sediment Rare H 07/14/18 07/16/18 07/16/18 23:50 12:20 12:20 WBC 9.5 RBC 4.12 L Hgb 12.3 Hct 37.2 MCV 90.4 MCH 29.8 MCHC 33.0 RDW 13.1 Plt Count 335 MPV Neut % (Auto) Lymph % (Auto) Lamar % (Auto) Eos % (Auto) Baso % (Auto) Neut # (Auto) Lymph # (Auto) Lamar # (Auto) Eos # (Auto) Baso # (Auto) PT 12.3 INR 1.1 APTT 30.2 Sodium 141 Potassium 3.7 Chloride 109 H Carbon Dioxide 26 Anion Gap 10 BUN 10 Creatinine 0.6 L Est GFR ( Amer) > 60 Est GFR (Non-Af Amer) > 60 Random Glucose 129 H Calcium 8.7 Total Bilirubin AST ALT Alkaline Phosphatase Total Protein Albumin Globulin Albumin/Globulin Ratio Urine Color Urine Clarity Urine pH Ur Specific [place] Urine Protein Urine Glucose (UA) Urine Ketones Urine Blood Urine Nitrate Urine Bilirubin Urine Urobilinogen Ur Leukocyte Esterase Urine RBC (Auto) Urine Microscopic WBC Ur Squamous Epith Cells Amorphous Sediment Microbiology 07/14/18 22:45 Urine,Clean Catch Urine Culture - Final No Growth (<1,000 CFU/ML) 07/14/18 20:55 Abscess - Abscess Gram Stain - Final 07/14/18 20:55 Abscess - Abscess Wound Culture - Preliminary Gram Positive Cocci Gram Negative All Gram Negative All#2 07/14/18 20:55 Blood Blood Culture - Preliminary NO GROWTH AFTER 24 HOURS 07/14/18 20:52 Blood Blood Culture - Preliminary NO GROWTH AFTER 24 HOURS Assessment and Plan (1) Cellulitis Status: Acute (2) DVT (deep venous thrombosis) Status: Acute (3) Open wound of ankle Status: Acute - Assessment and Plan (Free Text) Assessment: A/P- 62 year old male with nonhealing superficial infected ulceration of the RLE with surrounding cellulitis and fund to have RLE popliteal vein thrombois on US report as well. pt. is afebrile normal wbc count wound cx- prelim GPC, GNR, GNR #2 blood cx- neg x 2 urine cx- neg plan- await ID and sens of the wound cx. continue with IV vancomycin 1 gram IV bid. day #2 Keep trough between 10-15. RLE thrombosis management as per PMD. local wound care as per podiatry . await ID and sens of the wound cx and most likely pt. can be d/c on oral antibiotics such as bactrim pending ID and sens of the wound cx.
[2018-07-16 13:16] LABS: BLOOD UREA NITROGEN 10 mg/dl (9-20); CALCIUM 8.7 mg/dL (8.4-10.2); GFR NON-AFRICAN AMERICAN > 60
[2018-07-17 07:59] LABS: INR 1.1; PROTHROMBIN TIME 12.8 Seconds (9.8-13.1)
[2018-07-17] MEDS: Enoxaparin 120 mg Syringe SC SCH ×2 (11:26→20:29)
[2018-07-17 15:10] VITALS: BMI 37.6
[2018-07-17] MEDS: Ciprofloxacin 400mg/200ml D5W 400 MG/200 ML BAG IVPB SCH ×2 (15:50→20:29)
--- NOTE | 2018-07-17 16:03 | CP.PCM.PN ---
Subjective - Date & Time of Evaluation Date of Evaluation: 07/17/18 Time of Evaluation: 16:02 - Subjective Subjective: Podiatry progress Note for Dr. Mchugh: 62 yo male patient presents with painful calf and superficial ulceration to right leg. Patient admits to minimal pain in the lower extremity. Denies any other pedal complaints. Patient denies N/V/F/SOB. Objective - Vital Signs/Intake and Output Vital Signs (last 24 hours): Temp Pulse Resp BP Pulse Ox 98.0 F 65 19 145/84 95 07/17/18 09:18 07/17/18 09:18 07/17/18 09:18 07/17/18 09:18 07/17/18 09:18 - Medications Medications: Current Medications Acetaminophen (Tylenol 325mg Tab) 325 mg PO Q6 PRN PRN Reason: Fever >100.4 F Acetaminophen (Tylenol 325mg Tab) 650 mg PO Q6 PRN PRN Reason: Pain, moderate (4-7) Last Admin: 07/16/18 06:33 Dose: 650 mg Enalapril Maleate (Vasotec) 10 mg PO DAILY [facility] Last Admin: 07/17/18 11:27 Dose: 10 mg Enoxaparin Sodium (Lovenox) 120 mg SC Q12 RENEE; Protocol Last Admin: 07/17/18 11:26 Dose: 120 mg Vancomycin HCl 1 gm/ Sodium (Chloride) 250 mls @ 166.667 mls/hr IVPB BID@0900,2100 REN[facility]; Protocol Last Admin: 07/17/18 11:27 Dose: 166.667 mls/hr Ciprofloxacin (Cipro 400mg/200ml Dsw) 400 mg in 200 mls @ 200 mls/hr IVPB Q12 REN[facility]; Protocol Last Admin: 07/17/18 15:50 Dose: 200 mls/hr Warfarin Sodium (Coumadin) 7 mg PO QD5 RENEE; Protocol Stop: 07/18/18 09:01 Last Admin: 07/17/18 11:35 Dose: Not Given - Labs Labs: 07/16/18 12:20 07/16/18 12:20 PT 12.8 Seconds (9.8-13.1) 07/17/18 05:30 INR 1.1 07/17/18 05:30 APTT 30.2 Seconds (25.6-37.1) 07/14/18 23:50 - Extremities Exam Additional comments: RLE focused exam Vascular: DP/PT 1/4, CFT <3 seconds to digits, temperature gradient increased warmth to R calf, +2 pitting edema to RLE Ortho: Pain upon palpation of calf compression Neuro: Gross sensation intact, unable to assess protective sensation Derm: Superficial diffuse ulceration to posterior calf, no drainage, no purulen ce, no tunneling, no tracking, no probe to bone. Erythema noted to proximal calf area. - Neurological Exam Neurological Exam: Alert, Awake, Oriented x3 Assessment and Plan - Assessment and Plan (Free Text) Assessment: 62 yo male with painful calf and superficial ulceration to right leg Plan: Patient seen and evaluated, discussed in detail with the attending Afebrile, absent leukocytosis Wound cx RLE ulceration; staph aureus, aeromonas hydrophilia, klebsiella oxytoca Continue with abx per ID reccs; Vanco 1 gram IV BID R Duplex lower extremity vein; + for popliteal DVT - DVT treatment per medicine team, Lovenox Local wound care: wound dressed with betadine, adaptic, DSD Pending D/C follow up in wound care center with Dr. Koehler, podiatry Will continue to follow while in house
--- NOTE | 2018-07-17 20:51 | PN ---
DATE: 07/17/2018 SUBJECTIVE: The patient was seen today, 07/17/2018. He is not in any cardiopulmonary distress and wound culture showed Staphylococcus aureus and Klebsiella, which is ESBL positive. The patient has been on IV antibiotics as per infectious disease application consultant. PHYSICAL EXAMINATION: VITAL SIGNS: The patient is currently afebrile and blood pressure is , respiratory rate 19, pulse 65, temperature 98. HEENT: Pupils equal, reactive to light. Normal appearing mucosa of the conjunctivae, oropharynx and nasal membrane mucosa. NECK: Supple. No JVD. No carotid bruit. No lymph node. No thyromegaly. CHEST AND LUNGS: Bilateral symmetrical expansion. Good air exchange. No rales, no rhonchi. CARDIOVASCULAR SYSTEM: PMI not localized. S1, S2. No additional sounds. ABDOMEN: Normoactive bowel sounds. No tenderness. No organomegaly. No masses. EXTREMITIES: No cyanosis, no clubbing. There is edema of both lower extremities, right more than left. VULNERABILITY RESEARCHER: Alert, awake, oriented x2. No neurological deficit could be appreciated. ASSESSMENT: 1. Deep venous thrombosis of the right lower extremity. 2. Infected ulcer of the right lower extremity. 3. Hypertension. PLAN Follow ID recommendations regarding the antibiotics. Continue Lovenox and we will decide about the anticoagulants after the hematuria will be resolved. Charo Dennis MD
--- NOTE | 2018-07-17 23:50 | PQF ---
PROVIDER RESPONSE TEXT: Hypokalemia, due to decrease oral intake REVIEWER QUERY TEXT: Clarification of Clinical Diagnostic Findings Please clarify if there is an associated dx. to go along with the following chemistry lab: 07/14: Pot assium: 3.3 OR: Disagree OR: Other explanation of clinical finding Physician order: Potassium Chloride: 40 meq once administered in the ER The patient's Clinical Indicators include: XX Query created by: Kathie Mathew on 07/16/2018 11:39 AM Electronically signed by: Charo Dennis MD 07/17/2018 11:47 PM
--- NOTE | 2018-07-17 23:50 | PQF ---
PROVIDER RESPONSE TEXT: Yes ,in agreement with cellulitis REVIEWER QUERY TEXT: Documentation Clarification In agreement with the diagnosis of Cellulitus? OR: Disagree OR: Other explanation of clinical finding Wound culture: prelim: Gm. pos cocci, Gm. neg jeniffer ER: Clinical Impression: Open wound of ankle, Cellulitis, DVT H and P: with symptoms of swelling of the right lower extremity as well as pain and redness in his ri ght lower extremity with a non healing wound -venous Doppler: popliteal vein thrombosis -extremity : with wound at the medial and posterior aspect of the rt. lower extremity about 5 inches above the ankle Assessment: Infected ulcer of the rt. lower extremity, venous stasis, and acute deep venous thrombosi s ID consult: Celllulitis, DVT, Open wound of ankle : RLE with surrounding cellulitus --Piperacillin D/John, IV Vancomycin The patient's Clinical Indicators include: XX Query created by: Kathie Mathew on 07/16/2018 12:41 PM Electronically signed by: Charo Dennis MD 07/17/2018 11:47 PM
--- NOTE | 2018-07-18 02:20 | PN ---
DATE: 07/16/2018 SUBJECTIVE: The patient was seen on 07/16/2018. He was not in any cardiopulmonary distress. The patient was on IV antibiotics. PHYSICAL EXAMINATION: VITAL SIGNS: Blood pressure 146/74, temperature 98.5, respiratory rate 19, and pulse 76. HEENT: Pupils equal and reactive to light. Normal-appearing mucosa of the conjunctivae, oropharynx, and nasal membrane mucosa. NECK: Supple. No JVD. No carotid bruit. No lymph node. No thyromegaly. CHEST AND LUNGS: Bilateral symmetrical expansion. Good air exchange. No rales. No rhonchi. CARDIOVASCULAR SYSTEM: PMI not localized. S1, S2. No additional sounds. ABDOMEN: Normoactive bowel sounds. No tenderness. No organomegaly. No masses. EXTREMITIES: Infected wound on the right lower extremity with swelling of both lower extremities, right more than left. CENTRAL NERVOUS SYSTEM: Alert, awake, and oriented x2. Moves all extremities equally. ASSESSMENT: Deep vein thrombosis, acute popliteal vein thrombosis on the right lower extremity, infected wound of the right lower extremity, and venous ulcer with venous stasis. PLAN: Continue current antibiotics, follow microbiology cultures were done, and follow recommendations of infectious disease consultants. Charo Dennis MD
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
[2018-07-18] MEDS: Ciprofloxacin 400mg/200ml D5W 400 MG/200 ML BAG IVPB SCH ×2 (11:24→20:44)
[2018-07-18] MEDS: Enoxaparin 120 mg Syringe SC SCH ×2 (11:25→20:45)
--- NOTE | 2018-07-18 15:37 | CP.PCM.PN ---
Subjective - Date & Time of Evaluation Date of Evaluation: 07/18/18 Time of Evaluation: 15:35 - Subjective Subjective: Podiatry progress Note for Dr. Mchugh: 62 yo male patient presents with painful calf and superficial ulceration to right leg. Family member noted at bedside. Patient admits to minimal pain in the lower extremity, however better than yesterday. Denies any other pedal complaints. Patient denies N/V/F/SOB. Objective - Vital Signs/Intake and Output Vital Signs (last 24 hours): Temp Pulse Resp BP Pulse Ox 97.4 F L 69 20 132/78 95 07/18/18 08:16 07/18/18 08:16 07/18/18 08:16 07/18/18 08:16 07/18/18 08:16 - Medications Medications: Current Medications Acetaminophen (Tylenol 325mg Tab) 325 mg PO Q6 PRN PRN Reason: Fever >100.4 F Acetaminophen (Tylenol 325mg Tab) 650 mg PO Q6 PRN PRN Reason: Pain, moderate (4-7) Last Admin: 07/16/18 06:33 Dose: 650 mg Enalapril Maleate (Vasotec) 10 mg PO DAILY [facility] Last Admin: 07/18/18 11:26 Dose: 10 mg Enoxaparin Sodium (Lovenox) 120 mg SC Q12 RENEE; Protocol Last Admin: 07/18/18 11:25 Dose: 120 mg Vancomycin HCl 1 gm/ Sodium (Chloride) 250 mls @ 166.667 mls/hr IVPB BID@0900,2100 RENEE; Protocol Last Admin: 07/18/18 11:25 Dose: 166.667 mls/hr Ciprofloxacin (Cipro 400mg/200ml Dsw) 400 mg in 200 mls @ 200 mls/hr IVPB Q12 RENEE; Protocol Last Admin: 07/18/18 11:24 Dose: 200 mls/hr - Labs Labs: 07/16/18 12:20 07/16/18 12:20 PT 12.8 Seconds (9.8-13.1) 07/17/18 05:30 INR 1.1 07/17/18 05:30 APTT 30.2 Seconds (25.6-37.1) 07/14/18 23:50 - Constitutional Appears: Well, Non-toxic, No Acute Distress - Head Exam Head Exam: ATRAUMATIC - Extremities Exam Additional comments: RLE focused exam Vascular: DP/PT 1/4, CFT <3 seconds to digits, temperature gradient increased warmth to R calf, +2 pitting edema to RLE Ortho: Pain upon palpation of calf compression Neuro: Gross sensation intact, unable to assess protective sensation Derm: Superficial diffuse ulceration to posterior calf, no drainage, no purulence, no tunneling, no tracking, no probe to bone. Erythema noted to proximal calf area. - Neurological Exam Neurological Exam: Alert, Awake - Psychiatric Exam Psychiatric exam: Normal Affect - Skin Skin Exam: Normal Color Assessment and Plan - Assessment and Plan (Free Text) Assessment: 62 yo male with popliteal DVT and superficial ulceration to right leg Plan: Patient seen and evaluated, discussed in detail with the attending Afebrile, absent leukocytosis Wound cx RLE ulceration; staph aureus, aeromonas hydrophilia, klebsiella oxytoca Continue with abx per ID reccs; Vanco 1 gram IV BID R Duplex lower extremity vein; + for popliteal DVT - DVT treatment per medicine team, Lovenox Local wound care: wound dressed with betadine, adaptic, DSD Pending D/C follow up in wound care center with Dr. Koehler, podiatry within a week Will continue to follow while in house
[2018-07-19] MEDS: Ciprofloxacin 400mg/200ml D5W 400 MG/200 ML BAG IVPB SCH (09:00)
[2018-07-19] MEDS: Enoxaparin 120 mg Syringe SC SCH (09:00)
--- NOTE | 2018-07-19 11:38 | CP.PCM.PN ---
Subjective - Date & Time of Evaluation Date of Evaluation: 07/19/18 Time of Evaluation: 11:38 - Subjective Subjective: ID note- Pt. seen and examined today. feels better. no fevers. Objective - Vital Signs/Intake and Output Vital Signs (last 24 hours): Temp Pulse Resp BP Pulse Ox 97.8 F 68 20 128/63 94 L 07/19/18 08:09 07/19/18 08:09 07/19/18 08:09 07/19/18 08:09 07/19/18 08:09 - Medications Medications: Current Medications Acetaminophen (Tylenol 325mg Tab) 325 mg PO Q6 PRN PRN Reason: Fever >100.4 F Acetaminophen (Tylenol 325mg Tab) 650 mg PO Q6 PRN PRN Reason: Pain, moderate (4-7) Last Admin: 07/19/18 09:04 Dose: 650 mg Enalapril Maleate (Vasotec) 10 mg PO DAILY [facility] Last Admin: 07/19/18 09:01 Dose: 10 mg Enoxaparin Sodium (Lovenox) 120 mg SC Q12 RENEE; Protocol Last Admin: 07/19/18 09:00 Dose: 120 mg Vancomycin HCl 1 gm/ Sodium (Chloride) 250 mls @ 166.667 mls/hr IVPB BID@0900,2100 REN[facility]; Protocol Last Admin: 07/18/18 20:43 Dose: 166.667 mls/hr Ciprofloxacin (Cipro 400mg/200ml Dsw) 400 mg in 200 mls @ 200 mls/hr IVPB Q12 [facility]ENEE; Protocol Last Admin: 07/19/18 09:00 Dose: 200 mls/hr - Labs Labs: - Additional Findings Additional findings: - Head Exam Head Exam: ATRAUMATIC - Eye Exam Eye Exam: EOMI Pupil Exam: PERRL - ENT Exam ENT Exam: Normal Oropharynx - Neck Exam Neck exam: Positive for: Full Rom - Respiratory Exam Respiratory Exam: Clear to Auscultation Bilateral, NORMAL BREATHING PATTERN - Cardiovascular Exam Cardiovascular Exam: RRR, +S1, +S2 - GI/Abdominal Exam GI & Abdominal Exam: Normal Bowel Sounds, Soft Additional comments: NT, ND - Extremities Exam Additional comments: right LE posterior mid calf region with superficial open ulceration about 7x 8 cm no yellow discharge today, only escoriated skin, pink tissue, no malodor no plantar ulcers b/l onychomycosis - Neurological Exam Neurological exam: Alert, Oriented x 3 Laboratory Results - last 72 hr 07/17/18 07/17/18 05:30 19:55 PT 12.8 INR 1.1 Vancomycin Trough 10.9 H Microbiology 07/14/18 20:55 Blood Blood Culture - Preliminary NO GROWTH AFTER 4 DAYS 07/14/18 20:52 Blood Blood Culture - Preliminary NO GROWTH AFTER 4 DAYS 07/14/18 20:55 Abscess - Abscess Gram Stain - Final 07/14/18 20:55 Abscess - Abscess Wound Culture - Final Staphylococcus Aureus Aeromonas Hydrophilia Group Klebsiella Oxytoca 07/14/18 22:45 Urine,Clean Catch Urine Culture - Final No Growth (<1,000 CFU/ML) Assessment and Plan (1) Cellulitis Status: Acute (2) DVT (deep venous thrombosis) Status: Acute (3) Open wound of ankle Status: Acute - Assessment and Plan (Free Text) Assessment: A/P- 62 year old male with nonhealing superficial infected ulceration of the RLE with surrounding cellulitis and fund to have RLE popliteal vein thrombois on US report as well. pt. is afebrile normal wbc count wound cx- MSSA, K.oxytoca, aeromonas blood cx- neg x 2 urine cx- neg plan- has completed 5 days of IV vanco and 3 days of IV cipro. based on the wound cx sensitivity pt. can be switched to oral clindamycin and oral cipro since he is being d/c today . would advise 10-14 days of po cipro and clindamycin and for pt. to f/u with podiatry at wound center . RLE thrombosis management as per PMD. all above d/w JEWELRY SALES ASSOCIATE Marilee Bennett taking care of patient at length.
--- NOTE | 2018-07-19 15:12 | CP.PCM.PCO ---
Assessment/Plan - Assessment/Plan Assessment (Free Text): Pt stable, to be discharged today on Eliquis, Rx sent to [facility]
[2018-07-19 16:55] VITALS: BP 111/69; PULSE 71; RESP 18; TEMP 97.7; O2SAT 93
--- NOTE | 2018-07-20 15:08 | DS ---
REASON FOR ADMISSION: This is a 62-year-old homeless male with history of chronic leg ulcer, was evaluated in the emergency room for infected venous ulcer on the right lower extremity. COURSE OF HOSPITALIZATION: The patient was admitted to medical floor and he had a wound culture done that showed multiple organisms. The patient was on IV antibiotics and he was afebrile, discharged on both clindamycin and ciprofloxacin. The patient also was found to have DVT of the right popliteal and he was discharged on Eliquis 5 mg twice a day. The patient was asked to followup in wound care center in [facility] as well as to also follow with his primary care physician, Dr. Mccain. FINAL DIAGNOSES: 1. Infected venous ulcer of the right lower extremity. 2. Deep venous thrombosis. 3. Hypertension. [facility] MD Sonny
== END 2018-07-19 18:40 | disposition home or self-care (01) | DRG 130 ==
LOC: H.ER 16:33 → H.ERHOLD 23:28 → H.MEDSURG1 07-15 13:17
PROVIDERS: ADMIT Internal Medicine; ATTEND Internal Medicine
DX: I82.431 Acute embolism and thrombosis of right popliteal vein (principal); L03.115 Cellulitis of right lower limb; E87.6 Hypokalemia; L97.919 Non-pressure chronic ulcer of unspecified part of right lower leg with unspecified severity; N39.0 Urinary tract infection, site not specified; L97.219 Non-pressure chronic ulcer of right calf with unspecified severity; N18.2 Chronic kidney disease, stage 2 (mild); I87.2 Venous insufficiency (chronic) (peripheral); Z59.0 Homelessness; Z91.19 Patient's noncompliance with other medical treatment and regimen; F17.200 Nicotine dependence, unspecified, uncomplicated; I12.9 Hypertensive chronic kidney disease with stage 1 through stage 4 chronic kidney disease, or unspecified chronic kidney disease; B35.1 Tinea unguium; A49.01 Methicillin susceptible Staphylococcus aureus infection, unspecified site

== ENCOUNTER 2018-11-02 14:04 | Inpatient (IN) | payer MEDICAID ==
[2018-11-02 14:05] VITALS: BMI 37.6
--- NOTE | 2018-11-02 16:32 | ED PDOC ---
Lower Extremity Pain/Injury Time Seen by Provider: 11/02/18 14:42 Chief Complaint (Nursing): Lower Extremity Problem/Injury Chief Complaint (Provider): Lower extremity swelling History Per: Patient History/Exam Limitations: no limitations Onset/Duration Of Symptoms: Persistent Current Symptoms Are (Timing): Still Present Additional Complaint(s): 62yo male with history of hypertension, lower extremity edema, CKD, comes to ER reporting lower extremity swelling, as well as an "oozing" ulcer on his right ankle. He additionally reports worsening swelling to his bilateral testicles. Patient states he missed his medications for the past 2 days. Otherwise, denies any chest pain, shortness of breath or fevers. No additional complaints. PMD: Dr. Gann Past Medical History Reviewed: Historical Data, Nursing Documentation, Vital Signs Vital Signs: Last Vital Signs Temp 98.1 F 11/02/18 14:15 Pulse 88 11/02/18 14:15 Resp 16 11/02/18 14:15 BP 142/74 11/02/18 14:15 Pulse Ox 98 11/02/18 14:15 - Medical History PMH: HTN, Kidney Stones, Peripheral Edema, Chronic Kidney Disease - Surgical History Surgical History: No Surg Hx - Family History Family History: States: No Known Family Hx - Home Medications Home Medications: Ambulatory Orders Medication Instructions Recorded RX: Multivitamin [Multivitamins] 1 each PO DAILY 07/15/18 Apixaban [Eliquis] 5 mg PO BID #60 tab 07/19/18 RX: Clindamycin [Cleocin] 300 mg PO Q8 #30 cap 07/19/18 Citalopram [celeXA] 20 mg PO DAILY 11/02/18 Gabapentin [Neurontin] 300 mg PO PRN PRN 11/02/18 Sulfamethoxazole/Trimethoprim 1 each PO BID 11/02/18 [Sulfamethoxazole-Tmp Ss Tablet] - Allergies Allergies/Adverse Reactions: Allergies Allergy/AdvReac Type Severity Reaction Status Date / Time No Known Allergies Allergy Verified 11/02/18 14:15 Review of Systems ROS Statement: Except As Marked, All Systems Reviewed And Found Negative Constitutional: Negative for: Fever, Chills Cardiovascular: Negative for: Chest Pain Respiratory: Negative for: Shortness of Breath Genitourinary Male: Positive for: Other (bilateral testicular swelling). Nega tive for: Dysuria, Incontinence Musculoskeletal: Positive for: Foot Pain (right foot w/ oozing ulcer), Other (leg swelling bilateral ) Physical Exam - Reviewed Nursing Documentation Reviewed: Yes Vital Signs Reviewed: Yes - Physical Exam Appears: Positive for: No Acute Distress Head Exam: Positive for: ATRAUMATIC, NORMAL INSPECTION, NORMOCEPHALIC Skin: Positive for: Normal Color Eye Exam: Positive for: Normal appearance Neck: Positive for: Supple Cardiovascular/Chest: Positive for: Regular Rate, Rhythm Respiratory: Positive for: Normal Breath Sounds. Negative for: Rales, Rhonchi, Wheezing Gastrointestinal/Abdominal: Positive for: Normal Exam, Soft Male Genital Exam: Positive for: erythema (mild erythema, most likely due to tinea), testicular tenderness (R) (mild), testicular tenderness (L) (mild), other (no testicular swelling noted; uncircumcised male, no discharge, firm penis). Negative for: urethral discharge Back: Positive for: Normal Inspection Extremity: Positive for: Pedal Edema (+ pitting edema bilateral knees), Other (+ non-healing ulcer to posterior right ankle; patient with surrounding erythema). Negative for: Calf Tenderness Neurologic/Psych: Positive for: Alert, Oriented. Negative for: Motor/Sensory Deficits - Laboratory Results Result Diagrams: 11/05/18 05:55 11/05/18 05:55 - ECG O2 Sat by Pulse Oximetry: 98 (RA) Pulse Ox Interpretation: Normal Medical Decision Making Medical Decision Makinyo male with lower extremity swelling & non healing ulcer rule out cellulitis vs. DVT most likely fluid overload Plan: -- Labs (including BNP) -- Podiatry consult -- Reassessment 1651 Chest x-ray FINDINGS: LUNGS: No active pulmonary disease. PLEURA: No significant pleural effusion identified, no pneumothorax apparent. CARDIOVASCULAR: No aortic atherosclerotic calcification present. Mild cardiomegaly unchanged. No pulmonary vascular congestion. OSSEOUS STRUCTURES: No significant abnormalities. VISUALIZED UPPER ABDOMEN: Normal. OTHER FINDINGS: None. IMPRESSION: Stable cardiomegaly. No interval acute cardiopulmonary disease appreciated. 1739 Labs reviewed, no clinically significant abnormalities BNP is 264. 1814 Prior charts reviewed, patient with history of DVT - US duplex lower extremities bilateral ordered Discussed with patient findings and he insists he does not have chest pain or shortness of breath at this time 1824 UA reviewed, patient with gross hematuria; US renal and US bladder ordered Based on testicular tenderness, US testicles ordered 1829 Case discussed with podiatry resident, who will evaluate patient in ER 1899 Patient signed out to Dr. Rai pending US results, reassessment Scribe Attestation: Documented by Margarita Preciado acting as a scribe for Terra Zamora MD. Provider Attestation: All medical record entries made by the Scribe were at my direction and personally dictated by me. I have reviewed the chart and agree that the record accurately reflects my personal performance of the history, physical exam, medical decision making, and the department course for this patient. I have also personally directed, reviewed, and agree with the discharge instructions and disposition. Disposition - Clinical Impression Clinical Impression: DVT (deep venous thrombosis), Cellulitis - Patient ED Disposition Is Patient to be Admitted: Transfer of Care - Disposition Disposition: Transfer of Care Disposition Time: 19:00 Condition: STABLE Patient Signed Over To: Trace Rai
--- NOTE | 2018-11-02 16:43 | RAD ---
Date of service: 11/02/2018 HISTORY: possible admission COMPARISON: Frontal chest radiograph 07/14/2018. FINDINGS: LUNGS: No active pulmonary disease. PLEURA: No significant pleural effusion identified, no pneumothorax apparent. CARDIOVASCULAR: No aortic atherosclerotic calcification present. Mild cardiomegaly unchanged. No pulmonary vascular congestion. OSSEOUS STRUCTURES: No significant abnormalities. VISUALIZED UPPER ABDOMEN: Normal. OTHER FINDINGS: None. IMPRESSION: Stable cardiomegaly. No interval acute cardiopulmonary disease appreciated.
[2018-11-02 16:47] LABS: SQUAMOUS EPITHIAL 1 /hpf (0-5); URINE BACTERIA RARE (<OCC); URINE BILIRUBIN NEGATIVE (NEGATIVE); URINE BLOOD LARGE (NEGATIVE); URINE CLARITY SLIGHTY-CLOUDY (Clear); URINE COLOR YELLOW (YELLOW); URINE GLUCOSE (UA) NEG (NEGATIVE); URINE LEUKOCYTE ESTERASE SMALL Leu/uL (Negative); URINE PROTEIN 30 mg/dL (NEGATIVE); URINE UROBILINOGEN 0.2-1.0 mg/dL (0.2-1.0)
[2018-11-02 16:57] LABS: BASO % 0.3 % (0.0-2.0); EOS # 0.2 K/uL (0.0-0.7); EOS % 2.6 % (0.0-4.0); HEMOGLOBIN 12.3 g/dL (12.0-18.0); LYMPH % 34.4 % (20.0-40.0); MEAN CELL VOLUME 88.3 fl (80.0-94.0); MEAN CORPUSCULAR HEMOGLOBIN 29.4 pg (27.0-31.0); MEAN CORPUSCULAR HGB CONC 33.4 g/dL (33.0-37.0); MEAN PLATELET VOLUME 7.7 fl (7.2-11.7); MONO # 0.7 K/uL (0.0-0.8); MONO % 8.1 % (0.0-10.0); NEUT # 4.7 K/uL (1.8-7.0); NEUT % 54.6 % (50.0-75.0); RBC 4.17 Mil/uL (4.40-5.90); RED CELL DISTRIBUTION WIDTH 13.5 % (11.5-14.5); WHITE BLOOD COUNT 8.6 K/uL (4.8-10.8)
[2018-11-02 17:30] LABS: B-TYPE NATRIURETIC PEPTIDE 264 pg/ml (0-900); BLOOD UREA NITROGEN 15 mg/dl (9-20); CALCIUM 8.9 mg/dL (8.4-10.2); GFR NON-AFRICAN AMERICAN > 60
[2018-11-02 18:54] LABS: INR 1.1; PROTHROMBIN TIME 12.5 Seconds (9.8-13.1)
[2018-11-02 18:57] LABS: PARTIAL THROMBOPLASTIN TIME 33.7 Seconds (25.6-37.1)
--- NOTE | 2018-11-02 19:15 | ED PDOC ---
- Laboratory Results Result Diagrams: 11/02/18 16:48 11/02/18 16:48 Lab Results: PT 12.5 Seconds (9.8-13.1) 11/02/18 18:40 INR 1.1 11/02/18 18:40 APTT 33.7 Seconds (25.6-37.1) 11/02/18 18:40 Troponin I < 0.0120 ng/mL (0.00-0.120) 11/02/18 16:48 NT-Pro-B Natriuret Pep 264 pg/ml (0-900) 11/02/18 16:48 Urine Color Yellow (YELLOW) 11/02/18 16:32 Urine Clarity Slighty-cloudy (Clear) 11/02/18 16:32 Urine pH 6.0 (5.0-8.0) 11/02/18 16:32 Ur Specific [place] 1.014 (1.003-1.030) 11/02/18 16:32 Urine Protein 30 mg/dL (NEGATIVE) 11/02/18 16:32 Urine Glucose (UA) Neg mg/dL (NEGATIVE) 11/02/18 16:32 Urine Ketones Negative mg/dL (NEGATIVE) 11/02/18 16:32 Urine Blood Large (NEGATIVE) 11/02/18 16:32 Urine Nitrate Negative (NEGATIVE) 11/02/18 16:32 Urine Bilirubin Negative (NEGATIVE) 11/02/18 16:32 Urine Urobilinogen 0.2-1.0 mg/dL (0.2-1.0) 11/02/18 16:32 Ur Leukocyte Esterase Small Eliza/uL (Negative) 11/02/18 16:32 Urine RBC (Auto) 551 /hpf (0-3) H 11/02/18 16:32 Urine Microscopic WBC 14 /hpf (0-5) H 11/02/18 16:32 Ur Squamous Epith Cells 1 /hpf (0-5) 11/02/18 16:32 Urine Bacteria Rare (<OCC) 11/02/18 16:32 - ECG O2 Sat by Pulse Oximetry: 98 (RA) Pulse Ox Interpretation: Normal Medical Decision Making Medical Decision Making: Receiving sign out: Patient signed out to me by Dr. Zamora at 1900 pending US studies, reassessment. 2021 US Testicles FINDINGS: RIGHT TESTICLE: Normal in size and echogenicity, no abnormal mass. Normal Doppler flow. The right testicle measured approximately 4.3 x 2.0 x 3.3 cm in longitudinal, AP and transverse dimensions respectively. LEFT TESTICLE: Normal in size and echogenicity, no abnormal mass. Normal Doppler flow. The left testicle measured approximately 3.6 x 2.7 x 2.8 cm in longitudinal, AP and transverse dimensions respectively. EPIDIDYMIDES: Within normal limits in size and vascularity SCROTUM: Small bilateral hydroceles are noted. A serpiginous collection of vessels seen in the posterior inferior bilateral hemiscrotum consistent with a varicocele. No extratesticular mass seen. IMPRESSION: 1. No acute abnormality evident on sonographic examination of the scrotum. 2. Small bilateral hydroceles and varicoceles. US Renal FINDINGS: RIGHT KIDNEY: Unremarkable. Normal in size and contour. No renal mass or calculus. No hydronephrosis. The right kidney measured approximately 13.3 x 6.4 x 8.3 cm in longitudinal, AP and transverse dimensions respectively. LEFT KIDNEY: Unremarkable. Normal in size and contour. No renal mass or calculus. Mild hydronephrosis. A left ureteric stent is noted. The left kidney measured approximately 13.1 x 6.4 x 6.1 cm in longitudinal, AP and transverse dimensions respectively. BLADDER: Unremarkable as visualized. The estimated pre-voiding bladder volume is approximately 462 cm. The estimated postvoiding residual bladder volume is 95 cm. MISCELLANEOUS: No other significant abnormality evident. IMPRESSION: 1. There is mild left hydronephrosis and a left ureteric stent is present. 2. Normal right renal ultrasound evaluation. 3. The estimated pre-voiding bladder volume is 462 cm. The estimated postvoiding residual bladder volume is 95 cm. 2032 Case discussed with podiatry resident, who states patient to be admitted for observation and IV antibiotics Patient to be admitted under Dr. Dennis IV vancomycin and IV zosyn ordered 2102 US Duplex Bilateral lower extremities FINDINGS: COMMON FEMORAL VEIN: No intraluminal thrombus detected. Normal Doppler waveforms. SUPERFICIAL FEMORAL VEIN: No intraluminal thrombus detected. Normal Doppler waveforms. POPLITEAL VEIN: Some intraluminal echogenic material is identified within the right popliteal vein. The vein is noncompressible. These findings are compatible with DVT. No thrombotic occlusion seen within the left popliteal vein. Normal Doppler waveforms. CALF VEINS: No intraluminal thrombus detected. Normal Doppler waveforms IMPRESSION: 1. Evidence of right popliteal DVT as described above. 2. No evidence of DVT in the left lower extremity. Diagnosis: Right Lower Extremity Cellulitis, DVT Scribe Attestation: Documented by Margarita Preciado acting as a scribe for Trace Rai MD. Provider Attestation: All medical record entries made by the Scribe were at my direction and personally dictated by me. I have reviewed the chart and agree that the record accurately reflects my personal performance of the history, physical exam, medical decision making, and the department course for this patient. I have also personally directed, reviewed, and agree with the discharge instructions and disposition. Disposition - Clinical Impression Clinical Impression: DVT (deep venous thrombosis), Cellulitis - POA Present On Arrival: Deep Vein Thrombosis / PE - Disposition Disposition: Admitted as In-Patient Disposition Time: 20:33 Condition: STABLE
[2018-11-02] MEDS ORDERED: Enoxaparin 120 mg Syringe SC STA (21:15)
--- NOTE | 2018-11-02 21:40 | CP.PCM.CON ---
History of Present Illness - History of Present Illness History of Present Illness: Podiatry Consult Note for Dr. Mchugh: 62 yo male patient with PMH of HTN, Kidney Stones, Peripheral Edema, Chronic Kidney Disease seen and evaluated in the ED for pian, redness and swelling to right leg. 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 He states that his right leg got red and swallen since 2 weeks but yesterday it got worse. Patient states that he was admitted in the hospital for 6 days last year and received antibiotics for his right leg infection. Patient is a poor historian. Denies any other pedal complaints. Patient denies N/V/F/SOB but he states that he feels hot today. PMH: HTN, Kidney Stones, Peripheral Edema, Chronic Kidney Disease. PSH: None Allergies: NKDA Social Hx: Denies smoking, or illicit drug use. He uses EtOH socially. Review of Systems - Review of Systems Review of Systems: As per HPI - Constitutional Constitutional: As Per HPI Past Patient History - Past Medical History & Family History Past Medical History?: Yes - Past Social History Smoking Status: Former Smoker - CARDIAC Hx Hypertension: Yes Hx Peripheral Edema: Yes - PULMONARY Hx Respiratory Disorders: No - NEUROLOGICAL Hx Neurological Disorder: Yes Other/Comment: HX:UNSTEADY GAIT:"IN 2009 BEATEN WITH A PIPE HAD TO USE A WALKER FOR AWHILE BUT NOW I'M BETTER." - HEENT Hx HEENT Problems: Yes Hx Cataracts: Yes ("SMALL AT THIS TIME") - RENAL Hx Chronic Kidney Disease: Yes Hx Kidney Stones: Yes - ENDOCRINE/METABOLIC Hx Endocrine Disorders: No - HEMATOLOGICAL/ONCOLOGICAL Hx Blood Disorders: Yes Hx Blood Transfusions: Yes Hx Blood Transfusion Reaction: No - INTEGUMENTARY Hx Dermatological Problems: No - MUSCULOSKELETAL/RHEUMATOLOGICAL Hx Musculoskeletal Disorders: Yes Hx Unsteady Gait: Yes Other/Comment: " AN I HAD SURGERY ON MY RIGHT HIP AND HAVE AN UNEVEN GAIT. I GET PAIN IN MY RIGHT HIP SO I TAKE A MUSCLE RELAXANT." - GASTROINTESTINAL Hx Gastrointestinal Disorders: Yes Hx Colostomy: Yes (AND REVERSAL DONE.) Hx Gastroesophageal Reflux: Yes Other/Comment: HX: 1987-"INFECTION IN MY COLON -I HAD SURGERY AND A COLOSTOMY FOR SEVERAL MONTHS BUT NO LONGER HAVE A COLOSTOMY.". HX: 2006-"COLON SURGERY DUE TO CONSTIPATION." - GENITOURINARY/GYNECOLOGICAL Hx Genitourinary Disorders: No - PSYCHIATRIC Hx Psychophysiologic Disorder: No Hx Substance Use: Yes - SURGICAL HISTORY Hx Surgeries: Yes Other/Comment: " AN INFANT I HAD SURGERY ON MY RIGHT HIP." - ANESTHESIA Hx Anesthesia: Yes Hx Anesthesia Reactions: No Hx Malignant Hyperthermia: No Meds Allergies/Adverse Reactions: Allergies Allergy/AdvReac Type Severity Reaction Status Date / Time No Known Allergies Allergy Verified 11/02/18 14:15 - Medications Medications: Current Medications Enoxaparin Sodium (Lovenox) 125 mg SC STAT STA; Protocol Stop: 11/02/18 21:16 Physical Exam - Constitutional Appears: Well, No Acute Distress - Head Exam Head Exam: ATRAUMATIC, NORMOCEPHALIC - Extremities Exam Additional comments: RLE focused exam Vascular: DP/PT 1/4, CFT <3 seconds to digits, temperature gradient increased warmth to R calf, +2 pitting edema to RLE Neuro: Gross sensation intact, protective sensation deminished Derm: Superficial abrasions to posterior calf covered by dry scabs, no drainage, no purulence, no tunneling, no tracking, no probe to bone. Erythema noted to calf and lower leg area. MSK: Pain upon palpation of calf compression. Muscle power intact 5/5 for all groups - Neurological Exam Neurological exam: Alert, Oriented x3 Results - Vital Signs Recent Vital Signs: Last Vital Signs Temp 98.1 F 11/02/18 14:15 Pulse 88 11/02/18 14:15 Resp 16 11/02/18 14:15 BP 142/74 11/02/18 14:15 Pulse Ox 98 11/02/18 21:18 - Labs Result Diagrams: 11/02/18 16:48 11/02/18 16:48 Labs: Laboratory Results - last 24 hr 11/02/18 11/02/18 11/02/18 16:32 16:48 16:48 WBC 8.6 RBC 4.17 L Hgb 12.3 Hct 36.8 MCV 88.3 D MCH 29.4 MCHC 33.4 RDW 13.5 Plt Count 270 MPV 7.7 Neut % (Auto) 54.6 Lymph % (Auto) 34.4 [place] % (Auto) 8.1 Eos % (Auto) 2.6 Baso % (Auto) 0.3 Neut # (Auto) 4.7 Lymph # (Auto) 3.0 [place] # (Auto) 0.7 Eos # (Auto) 0.2 Baso # (Auto) 0.0 PT INR APTT Sodium 136 Potassium 3.7 Chloride 101 Carbon Dioxide 26 Anion Gap 13 BUN 15 Creatinine 0.8 Est GFR ( Amer) > 60 Est GFR (Non-Af Amer) > 60 Random Glucose 100 Lactic Acid Calcium 8.9 Troponin I < 0.0120 NT-Pro-B Natriuret Pep 264 Urine Color Yellow Urine Clarity Slighty-cloudy Urine pH 6.0 Ur Specific [place] 1.014 Urine Protein 30 Urine Glucose (UA) Neg Urine Ketones Negative Urine Blood Large Urine Nitrate Negative Urine Bilirubin Negative Urine Urobilinogen 0.2-1.0 Ur Leukocyte Esterase Small Urine RBC (Auto) 551 H Urine Microscopic WBC 14 H Ur Squamous Epith Cells 1 Urine Bacteria Rare 11/02/18 11/02/18 18:40 21:06 WBC RBC Hgb Hct MCV MCH MCHC RDW Plt Count MPV Neut % (Auto) Lymph % (Auto) [place] % (Auto) Eos % (Auto) Baso % (Auto) Neut # (Auto) Lymph # (Auto) [place] # (Auto) Eos # (Auto) Baso # (Auto) PT 12.5 INR 1.1 APTT 33.7 Sodium Potassium Chloride Carbon Dioxide Anion Gap BUN Creatinine Est GFR ( Amer) Est GFR (Non-Af Amer) Random Glucose Lactic Acid 1.1 Calcium Troponin I NT-Pro-B Natriuret Pep Urine Color Urine Clarity Urine pH Ur Specific [place] Urine Protein Urine Glucose (UA) Urine Ketones Urine Blood Urine Nitrate Urine Bilirubin Urine Urobilinogen Ur Leukocyte Esterase Urine RBC (Auto) Urine Microscopic WBC Ur Squamous Epith Cells Urine Bacteria Assessment & Plan - Assessment and Plan (Free Text) Assessment: 62 y/o male patient presents with R painful, erythematous LE (DVT vs cellulitis). Plan: Patient seen and evaluated with all questions and concerns addressed Plan discussed with Dr. Savage Charts, labs and vitals eviewed; Afebrile, WBC 8.6 Wound cx RLE ulceration; pending Wound stable from podiatry standpoint Patient received stat dose of abx in the ED R Duplex lower extremity vein; + for popliteal DVT - DVT treatment per medicine team, Lovonox dose ordered by ED team No dressing applied to the RLE Patient will be admitted by the primary team Podiatry will continue to follow up the patient while in house Thank you for the consult - Date & Time Date: 11/02/18 Time: 21:46
[2018-11-03] MEDS ORDERED: Piperacillin/Tazobact 3.375 GM in Sodium Chloride 0.9% 100 ML IVPB SCH
[2018-11-03] MEDS: Piperacillin/Tazobact 3.375 GM in Sodium Chloride 0.9% 100 ML IVPB SCH ×4 (06:30→23:00)
[2018-11-03] MEDS ORDERED: Influenza Vaccine 60 mcg/0.5 mL SYR (4YR UP) IM ONE (08:00)
[2018-11-03] MEDS ORDERED: Influenza Vaccine (5 YR UP)/PF 60 MCG/0.5 ML SYR IM ONE (08:00)
[2018-11-03] MEDS: Multivitamin With Minerals Tab PO SCH (09:16)
--- NOTE | 2018-11-03 10:03 | CARD ---
APPROVED REPORT Date of service: 11/02/2018 EKG Measurement Heart [id number] <Conclusion> Normal sinus rhythm Normal ECG
--- NOTE | 2018-11-03 10:58 | US ---
Date of service: 11/02/2018 PROCEDURE: Bilateral lower extremity venous duplex Doppler. HISTORY: BL leg swelling, previous DVT COMPARISON: None available. TECHNIQUE: Bilateral common femoral, superficial femoral, popliteal and posterior tibial veins were evaluated. Flow was assessed with color Doppler, compressibility, assessment of phasic flow and augmentation response. FINDINGS: COMMON FEMORAL VEIN: Right CFV: Unremarkable. Left CFV: Unremarkable. SUPERFICIAL FEMORAL VEIN: Right SFV: Unremarkable. Left SFV: Unremarkable. POPLITEAL VEIN: Right Popliteal: Not fully compressible. Intraluminal thrombus identified. No flow demonstrated in the portion of the vessel occupied by thrombus. There is some respiratory phasicity. Augmentation is not demonstrated. Left Popliteal: Unremarkable. POSTERIOR TIBIAL VEIN: Right PTV: Unremarkable. Left PTV: Unremarkable. OTHER FINDINGS: None. IMPRESSION: Right popliteal vein deep venous thrombosis. The preliminary findings for this examination were reported by [facility] at 9:03 p.m. on 11/02/2018. There is concurrence of this report with the preliminary findings.
--- NOTE | 2018-11-03 11:42 | US ---
Date of service: 11/02/2018 PROCEDURE: Ultrasound of the Kidneys HISTORY: hematuria COMPARISON: No prior pertinent ultrasound studies. Abdominal x-ray 04/07/2017 noted TECHNIQUE: Sonogram of the kidneys. Doppler applied as needed FINDINGS: RIGHT KIDNEY: Measures: 13.3 x 8.3 x 6.4 cm. Normal in size, contour and echogenicity. No suspicious appearing mass noted. No gross hydronephrosis. Small 3 to 4 mm non shadowing and nonobstructing right renal calculus versus specular echo midpole possible. LEFT KIDNEY: Measures: 13.1 x 6.1 x 6.4 cm. More limited visualization. Left intra and extra renal marked pelviectasis. Concomitant left proximal ureteral dilatation is suspect. This exam not optimal for assessing for ureteral dilatation No definitive stone, solid mass lesion or or diffuse caliectasis to suggest a more significant appearing peripheral left renal hydronephrosis visualized. Left renal cortical thinning apparent. OTHER FINDINGS: Bladder: A linear echogenicity compatible with stent in the bladder is noted. No gross bladder wall thickening seen. Some low-level debris within the bladder is suspect. No shadowing calculi noted. A right ureteral jet is noted. A left ureteral jet was not seen. Pre void a bladder urine volume is 461.75 mL. Postvoid volume is 94.95 IMPRESSION: Limited visualization of the left kidney. The left renal cortex appears thin. Minimum prominent left intra and extra renal pelviectasis is suggested. Is difficult to identify with certainty peripheral left caliectasis. Proximal left ureteral due distension also suspect. Note is made of a very large left proximal ureteral calculus on the KUB from 04/07/2017. Correlate clinically. No right hydronephrosis seen. No obstructing hydronephrosis on the right.. No right or left gross renal masses seen. Left sided ureteral stent-portion of an in the bladder as noted above. No left ureteral jet noted. Right ureteral jet present Concordant results (preliminary interpretation) provided by [facility]. Moderately distended bladder-with bladder debris. No bladder wall thickening.
--- NOTE | 2018-11-03 13:29 | US ---
Date of service: 11/02/2018 HISTORY: BL testicular pain TECHNIQUE: Realtime sonography through the scrotum with color and doppler flow. COMPARISON: None Available. FINDINGS: RIGHT TESTICLE: Measures 4.3 x 3.3 x 2.0 cm. Homogeneous echotexture. No mass. Normal flow demonstrated. RIGHT EPIDIDYMIS: Normal size, morphology and vascularity. No mass. LEFT TESTICLE: Measures 3.6 x 2.8 x 2.7 cm. Homogeneous echotexture. No mass. Normal flow demonstrated. LEFT EPIDIDYMIS: Normal size, morphology and vascularity.No mass. HYDROCELE: Trace right and mild left VARICOCELE: Bilateral varicocele noted OTHER FINDINGS: None. IMPRESSION: Bilateral varicocele. Trace right hydrocele and mild left hydrocele. Otherwise unremarkable. No evidence of epididymo-orchitis or testicular torsion.
[2018-11-03 14:58] LABS: BARBITURATES, UR NEGATIVE (NEGATIVE); BENZODIAZEPINES, UR NEGATIVE (NEGATIVE); OPIATES, UR NEGATIVE (NEGATIVE); PHENCYCLIDINE, UR NEGATIVE (NEGATIVE)
[2018-11-04] MEDS: Piperacillin/Tazobact 3.375 GM in Sodium Chloride 0.9% 100 ML IVPB SCH ×4 (05:07→23:08)
[2018-11-04] MEDS: Multivitamin With Minerals Tab PO SCH (08:36)
[2018-11-04] MEDS: Pantoprazole 40 mg EC Tab PO SCH (16:36)
--- NOTE | 2018-11-04 23:39 | PN ---
DATE: 11/04/2018 DAILY PROGRESS NOTE SUBJECTIVE: The patient is seen today, 11/04/2018. The patient has diffuse redness and tenderness in the right lower extremity. The patient is complaining of burning urination. PHYSICAL EXAMINATION: VITAL SIGNS: Blood pressure 144/81, temperature 97.9, respiratory rate 20, and pulse 64. HEENT: Pupils equal and reactive to light. Normal-appearing mucosa of the conjunctivae, oropharynx and nasal membrane mucosa. NECK: Supple. No JVD. No carotid bruit. No lymph node. No thyromegaly. CHEST AND LUNGS: Bilateral symmetrical expansion. Good air exchange. No rales. No rhonchi. CARDIOVASCULAR SYSTEM: PMI not localized. S1 and S2. No additional sounds. ABDOMEN: Normoactive bowel sounds. No tenderness. No organomegaly. No masses. EXTREMITIES: Diffuse redness and tenderness of the right lower extremity. CENTRAL NERVOUS SYSTEM: Alert, awake, oriented x2. Moves all extremities equally. ASSESSMENT: 1. Cellulitis of the right lower extremity. 2. Rule out urinary retention. 3. Incisional hernia. 4. Possible benign prostatic hypertrophy. PLAN: Continue current IV antibiotics. Continue Eliquis 5 mg twice a day. Charo Dennis MD
--- NOTE | 2018-11-05 02:29 | HP ---
HISTORY OF PRESENT ILLNESS: This is a 62-year-old male, homeless, with history of multiple medical problems including deep venous thrombosis, stasis dermatitis, was admitted for cellulitis of the right lower extremity. The patient was evaluated in emergency room and due to severe extensive cellulitis, the patient was admitted for further management. The patient was started on both vancomycin and gentamicin. Cultures also were sent for blood. Other review of systems, the patient also admits that he has burning urination sensation. ALLERGIES: NO KNOWN ALLERGY. PAST MEDICAL HISTORY: Deep venous thrombosis, stasis dermatitis, status post partial colectomy, incisional hernia. SOCIAL HISTORY: The patient is homeless. Denied smoking, EtOH or substance abuse. FAMILY HISTORY: Not contributory. MEDICATIONS: As per MAR, reviewed and ordered. PHYSICAL EXAMINATION: GENERAL: The patient is in bed, not in any cardiopulmonary distress. VITAL SIGNS: Blood pressure 118/62, temperature 98.2, respiratory rate 20 and pulse 80. HEENT: Pupils equal, reactive to light. Normal-appearing mucosa of the conjunctivae, oropharynx and nasal membrane mucosa. NECK: Supple. No JVD. No carotid bruit. No lymph node. No thyromegaly. CHEST AND LUNGS: Bilateral symmetrical expansion. Good air exchange. No rales, no rhonchi. CARDIOVASCULAR SYSTEM: PMI not localized. S1, S2. No additional sounds. ABDOMEN: Normoactive bowel sounds. No tenderness. No organomegaly. No masses. The patient has large incisional hernia. EXTREMITIES: Diffuse redness of the right lower extremity with tenderness. CENTRAL NERVOUS SYSTEM: Alert, awake, oriented x2 and moves all extremities equally. ASSESSMENT: Cellulitis of the right lower extremity, stasis dermatitis, deep venous thrombosis, incisional hernia. PLAN: Continue current IV antibiotics. We will also start the patient on tamsulosin 0.4 mg daily and resume the patient's home medications. Charo Dennis MD
[2018-11-05] MEDS: Piperacillin/Tazobact 3.375 GM in Sodium Chloride 0.9% 100 ML IVPB SCH ×4 (05:10→23:00)
[2018-11-05 06:26] LABS: HEMOGLOBIN 12.6 g/dL (12.0-18.0); MEAN CELL VOLUME 88.7 fl (80.0-94.0); MEAN CORPUSCULAR HEMOGLOBIN 29.4 pg (27.0-31.0); MEAN CORPUSCULAR HGB CONC 33.1 g/dL (33.0-37.0); RBC 4.28 Mil/uL (4.40-5.90); RED CELL DISTRIBUTION WIDTH 13.3 % (11.5-14.5); WHITE BLOOD COUNT 8.8 K/uL (4.8-10.8)
[2018-11-05 06:32] LABS: BLOOD UREA NITROGEN 13 mg/dl (9-20); CALCIUM 8.7 mg/dL (8.4-10.2); GFR NON-AFRICAN AMERICAN > 60
--- NOTE | 2018-11-05 08:43 | CP.PCM.PN ---
Subjective - Date & Time of Evaluation Date of Evaluation: 11/05/18 Time of Evaluation: 08:41 - Subjective Subjective: Podiatry progress note for Dr. Savage. 62 yo male patient with PMH of HTN, Kidney Stones, Peripheral Edema, Chronic Kidney Disease seen and evaluated at bedside for pain, redness and swelling to right leg. AAOx3 and in NAD. Malodor noted in the room. Patient denies N/V/F/SOB but he states that he feels hot today. Admits to minimal pain in the right leg. Objective - Vital Signs/Intake and Output Vital Signs (last 24 hours): Temp Pulse Resp BP Pulse Ox 97.7 F 76 20 132/78 96 11/05/18 08:17 11/05/18 08:17 11/05/18 08:17 11/05/18 08:17 11/05/18 08:17 - Medications Medications: Current Medications Apixaban (Eliquis) 5 mg PO BID [facility]; Protocol Last Admin: 11/04/18 16:37 Dose: 5 mg Citalopram Hydrobromide (Celexa) 20 mg PO DAILY [facility] Last Admin: 11/04/18 08:36 Dose: 20 mg Gabapentin (Neurontin) 100 mg PO TID [facility] Last Admin: 11/04/18 16:36 Dose: 100 mg Vancomycin HCl 1 gm/ Sodium (Chloride) 250 mls @ 166.667 mls/hr IVPB Q12H [facility]; Protocol Last Admin: 11/05/18 00:13 Dose: 166.667 mls/hr Piperacillin Sod/Tazobactam (Sod 3.375 gm/ Sodium Chloride) 100 mls @ 100 mls/hr IVPB 0000,0600,1200,1800 [facility]; Protocol Last Admin: 11/05/18 05:10 Dose: 100 mls/hr Multivitamins/Minerals (Therapeutic-M Tab) 1 tab PO DAILY [facility] Last Admin: 11/04/18 08:36 Dose: 1 tab Pantoprazole Sodium (Protonix Ec Tab) 40 mg PO DAILY [facility] Last Admin: 11/04/18 16:36 Dose: 40 mg Tamsulosin HCl (Flomax) 0.4 mg PO DAILY [facility] Last Admin: 11/04/18 16:36 Dose: 0.4 mg - Labs Labs: 11/05/18 05:55 11/05/18 05:55 PT 12.5 Seconds (9.8-13.1) 11/02/18 18:40 INR 1.1 11/02/18 18:40 APTT 33.7 Seconds (25.6-37.1) 11/02/18 18:40 - Constitutional Appears: Well, Non-toxic, No Acute Distress - Head Exam Head Exam: ATRAUMATIC - Eye Exam Eye Exam: Normal appearance - Extremities Exam Additional comments: RLE focused exam Vascular: DP/PT 1/4, CFT <3 seconds to digits, temperature gradient increased warmth to R calf, +2 pitting edema to RLE Neuro: Gross sensation intact, protective sensation deminished Derm: Superficial abrasions to posterior calf covered by dry scabs, no drainage, no purulence, no tunneling, no tracking, no probe to bone. Minimal Erythema noted to calf and lower leg area. MSK: Pain upon palpation of calf compression. Muscle power intact 5/5 for all groups Assessment and Plan - Assessment and Plan (Free Text) Assessment: 62 y/o male patient presents with R painful, erythematous LE (DVT vs cellulitis). Plan: Patient seen and evaluated with all questions and concerns addressed Plan discussed with Dr. Savage Charts, labs and vitals eviewed; Afebrile, WBC 8.6 Wound stable from podiatry standpoint Patient received stat dose of abx in the ED R Duplex lower extremity vein; + for popliteal DVT - DVT treatment per medicine team, Lovonox dose ordered by ED team No dressing applied to the RLE Podiatry will now sign off; please reconsult if necessary
[2018-11-05] MEDS: Multivitamin With Minerals Tab PO SCH (10:44)
[2018-11-05] MEDS: Pantoprazole 40 mg EC Tab PO SCH (10:44)
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
--- NOTE | 2018-11-05 17:23 | PQF ---
PROVIDER RESPONSE TEXT: Provider was unable to determine a response for this query. REVIEWER QUERY TEXT: Acuity Specificity DEEP VENOUS THROMBOSIS is documented in the Medical Record. Please specify the 1) site of the DVT an d 2) acuity of this condition with terms such as: -- Acute -- Chronic -- Acute and chronic -- Acute on chronic -- Other (please specify in the medical record) The patient's Clinical Indicators include: Documentation of a history of DVT. Venous Doppler: Right popliteal venin deep venous thrombosis. Rx: Eliquis Query created by: Marilee Deal on 11/05/2018 8:03 AM Electronically signed by: Ivan Moreno 11/05/2018 5:20 PM
--- NOTE | 2018-11-05 17:23 | PQF ---
PROVIDER RESPONSE TEXT: Provider was unable to determine a response for this query. REVIEWER QUERY TEXT: Skin Ulcer Type and Severity Non healing ulcer to the posterior right ankle is documented by the ER MD. Superficial abrasions to posterior calf covered by dry scabs documented by podiatry. Wound Cx RLE ulceration. 1) Please clarify if this patient also has a right ankle ulcer. If yes see question #2 below. 2) Please specify the type and severity Such as: Type: -- Pressure ulcer -- Diabetic skin ulcer -- Venous stasis ulcer -- Other, please specify Severity: -- Limited to breakdown of skin -- With fat layer exposure -- With necrosis of muscle -- With necrosis of bone -- Other, please specify The patient's Clinical Indicators include: Non healing ulcer to the posterior right ankle is documented by the ER MD. Superficial abrasions to posterior calf covered by dry scabs documented by podiatry. Query created by: Marilee Deal on 11/05/2018 8:11 AM Electronically signed by: Ivan Moreno 11/05/2018 5:20 PM [facility]
[2018-11-06] MEDS: Piperacillin/Tazobact 3.375 GM in Sodium Chloride 0.9% 100 ML IVPB SCH ×4 (05:04→23:18)
[2018-11-06] MEDS: Pantoprazole 40 mg EC Tab PO SCH (09:15)
[2018-11-06] MEDS: Multivitamin With Minerals Tab PO SCH (09:16)
--- NOTE | 2018-11-06 14:59 | PN ---
DATE: 11/05/2018 SUBJECTIVE: He was not in any cardiopulmonary distress. PHYSICAL EXAMINATION: VITAL SIGNS: Blood pressure 132/78, temperature 97.7, respiratory rate 20 and pulse 76. HEENT: Pupils equal, reactive to light. Normal-appearing mucosa of the conjunctivae, oropharynx and nasal membrane mucosa. NECK: Supple. No JVD. No carotid bruit. No lymph node. No thyromegaly. CHEST AND LUNGS: Bilateral symmetrical expansion. Good air exchange. No rales, no rhonchi. CARDIOVASCULAR: PMI not localized. S1, S2. No additional sounds. ABDOMEN: Normoactive bowel sounds. No tenderness. No organomegaly. No masses. EXTREMITIES: No cyanosis, no clubbing. There is diffuse swelling and multiple wounds with scab on the posterior aspect of the right lower leg. CENTRAL NERVOUS SYSTEM: Alert, awake, oriented x2. No neurological deficit could be appreciated. ASSESSMENT: 1. Diffuse cellulitis of the right lower extremity. 2. History of deep venous thrombosis. 3. Benign prostate hypertrophy. 4. Gastroesophageal reflux disease. PLAN: Continue current antibiotics and check vancomycin trough with next dose. Charo Dennis MD
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
[2018-11-07] MEDS: Piperacillin/Tazobact 3.375 GM in Sodium Chloride 0.9% 100 ML IVPB SCH ×4 (05:03→23:16)
[2018-11-07] MEDS: Pantoprazole 40 mg EC Tab PO SCH (08:22)
[2018-11-07] MEDS: Multivitamin With Minerals Tab PO SCH (08:22)
--- NOTE | 2018-11-07 22:45 | PN ---
DATE: 11/07/2018 SUBJECTIVE: The patient is seen today, 11/07/2018. He is not in any cardiopulmonary distress. PHYSICAL EXAMINATION: VITAL SIGNS: Blood pressure 135/73, temperature 97.6, respiratory rate 20, and pulse 73. HEENT: Pupils equal and reactive to light. Normal-appearing mucosa of the conjunctivae, oropharynx, and nasal membrane mucosa. NECK: Supple. No JVD. No carotid bruit. No lymph node. No thyromegaly. CHEST AND LUNGS: Bilateral symmetrical expansion. Good air exchange. No rales. No rhonchi. CARDIOVASCULAR SYSTEM: PMI not localized. S1 and S2. No additional sounds. ABDOMEN: Normoactive bowel sounds. No tenderness. No organomegaly. No masses. EXTREMITIES: No cyanosis. No clubbing. No edema. Decreased redness and tenderness in the right lower extremity. CENTRAL NERVOUS SYSTEM: Alert, awake, oriented x2, moves all extremities equally. ASSESSMENT: 1. Resolving cellulitis. 2. History of deep venous thrombosis. 3. Large incisional hernia. PLAN: Continue current antibiotics and as the patient is stable, we will discharge on p.o. antibiotics to continue for another 5 days. Charo Dennis MD
[2018-11-08] MEDS: Piperacillin/Tazobact 3.375 GM in Sodium Chloride 0.9% 100 ML IVPB SCH (05:02)
--- NOTE | 2018-11-08 06:45 | CP.PCM.PN ---
Subjective - Date & Time of Evaluation Date of Evaluation: 11/08/18 Time of Evaluation: 06:42 - Subjective Subjective: Podiatry progress note for Dr. Savage. 62 y/o male patient with PMHx of HTN, Kidney Stones, Peripheral Edema, Chronic Kidney Disease seen and evaluated at bedside for pain, redness and swelling to right leg. Patient seen to be resting comfortably, and in no acute distress. Malodor noted in the room. Patient denies N/V/F/SOB/CP/posterior calf pain. Admits to mild soreness to the right lower extremity. Objective - Vital Signs/Intake and Output Vital Signs (last 24 hours): Temp Pulse Resp BP Pulse Ox 97.8 F 69 19 100/66 95 11/08/18 00:29 11/08/18 00:29 11/08/18 00:29 11/08/18 00:29 11/08/18 00:29 Intake and Output: 11/07/18 11/08/18 18:59 06:59 Intake Total 450 Output Total 1600 Balance -1150 - Medications Medications: Current Medications Apixaban (Eliquis) 5 mg PO BID [facility]; Protocol Last Admin: 11/07/18 16:52 Dose: 5 mg Citalopram Hydrobromide (Celexa) 20 mg PO DAILY [facility] Last Admin: 11/07/18 08:23 Dose: 20 mg Gabapentin (Neurontin) 100 mg PO TID [facility] Last Admin: 11/07/18 16:52 Dose: 100 mg Multivitamins/Minerals (Therapeutic-M Tab) 1 tab PO DAILY [facility] Last Admin: 11/07/18 08:22 Dose: 1 tab Pantoprazole Sodium (Protonix Ec Tab) 40 mg PO DAILY [facility] Last Admin: 11/07/18 08:22 Dose: 40 mg Tamsulosin HCl (Flomax) 0.4 mg PO DAILY [facility] Last Admin: 11/07/18 08:22 Dose: 0.4 mg - Labs Labs: 11/05/18 05:55 11/05/18 05:55 PT 12.5 Seconds (9.8-13.1) 11/02/18 18:40 INR 1.1 11/02/18 18:40 APTT 33.7 Seconds (25.6-37.1) 11/02/18 18:40 - Constitutional Appears: Well, Non-toxic, No Acute Distress - Head Exam Head Exam: ATRAUMATIC, NORMOCEPHALIC - Extremities Exam Additional comments: RLE focused exam Vascular: DP/PT 2/4, CFT <3 seconds to digits, temperature gradient increased warmth to R calf, +1 pitting edema to RLE Neuro: Gross sensation intact, protective sensation diminished Derm: Superficial abrasions to posterior calf covered by dry scabs, no drainage, no purulence, no tunneling, no tracking, no probe to bone. Minimal Erythema noted to calf and lower leg area, improvement noted. MSK: mild pain upon palpation of calf compression, Muscle power intact 5/5 for all groups - Neurological Exam Neurological Exam: Alert, Awake, Oriented x3 - Psychiatric Exam Psychiatric exam: Normal Affect, Normal Mood Assessment and Plan - Assessment and Plan (Free Text) Assessment: 62 y/o male patient presents with R painful, erythematous LE (DVT vs cellulitis). Plan: Patient seen and evaluated at bedside Plan discussed with Dr. Savage Charts, labs and vitals reviewed; Afebrile, WBC 8.8 (11/05/18) R Duplex lower extremity vein: + for popliteal DVT - DVT treatment per medicine team, patient started on Eliquis 5 mg PO BID [facility] No dressing applied to the RLE Patient stable from Podiatric standpoint, no podiatric intervention necessary Podiatry will now sign off; please re-consult as necessary
[2018-11-08 08:30] VITALS: BP 148/73; PULSE 77; RESP 20; TEMP 98.1; O2SAT 94
[2018-11-08] MEDS: Multivitamin With Minerals Tab PO SCH (08:32)
[2018-11-08] MEDS: Pantoprazole 40 mg EC Tab PO SCH (08:33)
[2018-11-08 10:29] LABS: HEMOGLOBIN 13.3 g/dL (12.0-18.0); MEAN CELL VOLUME 88.4 fl (80.0-94.0); MEAN CORPUSCULAR HGB CONC 32.9 g/dL (33.0-37.0); RBC 4.56 Mil/uL (4.40-5.90); RED CELL DISTRIBUTION WIDTH 13.4 % (11.5-14.5); WHITE BLOOD COUNT 9.3 K/uL (4.8-10.8)
[2018-11-08 10:41] LABS: BLOOD UREA NITROGEN 16 mg/dl (9-20); CALCIUM 9.3 mg/dL (8.4-10.2); GFR NON-AFRICAN AMERICAN > 60
[2018-11-08] MEDS ORDERED: Piperacillin/Tazobact 3.375 GM in Sodium Chloride 0.9% 100 ML IVPB SCH (12:00)
--- NOTE | 2018-11-10 22:27 | PQF ---
PROVIDER RESPONSE TEXT: Acute DVT REVIEWER QUERY TEXT: Acuity Specificity History of deep venous thrombosis is documented in the Medical Record. Venous doppler: Right poplitea l vein deep venous thrombosis . Rx on Eliquis. Please specify the acuity of this condition with terms such as: -- Acute -- Chronic -- Acute and chronic -- Acute on chronic -- Other (please specify in the medical record) The patient's Clinical Indicators include: Documentation of a history of DVT. Venous Doppler: Right popliteal venin deep venous thrombosis. Rx: Eliquis Query created by: Marilee Deal on 11/08/2018 6:38 AM Electronically signed by: Charo Dennis MD 11/10/2018 10:24 PM
== END 2018-11-08 16:30 | disposition home or self-care (01) | DRG 383 ==
LOC: H.ER 14:04 → H.ERHOLD 20:33 → H.MEDSURG1 22:58 → OBSVTOIN 11-04 12:13
PROVIDERS: ADMIT Internal Medicine; ATTEND Internal Medicine
DX: L03.115 Cellulitis of right lower limb (principal); I82.431 Acute embolism and thrombosis of right popliteal vein; L97.319 Non-pressure chronic ulcer of right ankle with unspecified severity; I87.2 Venous insufficiency (chronic) (peripheral); I12.9 Hypertensive chronic kidney disease with stage 1 through stage 4 chronic kidney disease, or unspecified chronic kidney disease; K43.2 Incisional hernia without obstruction or gangrene; Z59.0 Homelessness; N43.3 Hydrocele, unspecified; R31.0 Gross hematuria; Z87.891 Personal history of nicotine dependence; K21.9 Gastro-esophageal reflux disease without esophagitis; N18.9 Chronic kidney disease, unspecified; N40.0 Benign prostatic hyperplasia without lower urinary tract symptoms; Z23 Encounter for immunization; I86.1 Scrotal varices